=== PATIENT | male | born 2005 | race Caucasian/White ===

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

== ENCOUNTER → 2024-04-27 | Outpatient (CLI) | payer BC, SELFPAY ==
--- NOTE | 2024-04-27 16:00 | RAD_ITS ---
STUDY: X-RAY - RIGHT WRIST REASON FOR EXAM: Male, 18 years old. persistent right wrist pain TECHNIQUE: 3 view(s) of the wrist were obtained. COMPARISON: None. FINDINGS: Normal visualized distal radius and ulna. Normal radiocarpal articulation. Normal distal radioulnar articulation. Normal carpal bones. Normal carpal articulations. Normal carpometacarpal articulation of the thumb. Normal second through fifth carpometacarpal articulations. Normal visualized metacarpal bones. The soft tissue structures are unremarkable. RAD/Wrist min 3 Views IMPRESSION: Normal x-ray examination of the wrist. Electronically Signed: Nehemias Fallon MD at 19:16 EDT ,
== END | disposition home or self-care (01) ==
PROVIDERS: PCP Family Medicine; Referring Provider Family Medicine; Visit Provider Family Medicine
DX: M25.531 Pain in right wrist (principal)
CPT/HCPCS: 73110

== ENCOUNTER 2024-10-26 16:30 | Outpatient (RCR) | payer BC, SELFPAY ==
--- NOTE | 2024-09-25 19:03 | HP.PTEVAL ---
Patient's Visit Information Visit Information Visit Information: PAUL PAREKH is a 18 year old M referred to Physical Therapy by Dr. Miah Velasquez DO with a diagnosis of BACK PAIN. Date of Evaluation: 09/25/24 Physical Therapist: Des Eaton, PT, Cert MDT, OCS Visit Plan Frequency: 2x /Week Duration: 4 Weeks Plan: PT INTERVENTIONS ROBB EX'S ,PATIENT EDUCATION LUMBAR ROLL EDUCATION , MODALITIES TO REDUCE PAIN RIGHT LUMBAR PROGRESS TO DLS ,AND POSTURAL EX'S Subjective Subjective: This 18 y/o male presents to physical therapy with back pain. Patient injury to lumbar ~ 1 month ago but symptoms have been intermittent ~ 2 years. Patient symptoms worse right lumbar to thigh to calf. Seen DR recommended PT tried anti-inflammatory . No imaging. Lat week pain worse right lumbar better thus week. Also symptom better in leg but worse with sitting. Aggravating factors sitting ,driving mild lifting. Alleviating factors standing, walking . Coughing/sneezing -. Bowel/bladder -. Patient has no prior PT . Patient seen chiropractor ~ 1 year helped. Patient condition affects QOL and function job demands. Patient goals to have no pain. SOCIAL: single VOCATION: [employer] Pain Right Back: Pain Intensity (Out of 10): 2 Pain Intensity Range: 10 Right Lower Extremity: Pain Intensity (Out of 10): 0 Pain Intensity Range: 10 Objective Objective: POSTURE: mild forward posture , reduce lordosis GAIT: reciprocal pattern PALPATION: tender right lumbar transverse NEURO: denies paresthesia/tingling ,occasionally right ight ,reflexes L3-4 ,L4-5 ,L5-S1 2/3 LUMBAR ROM: flexion min loss ,extension min loss ,side glides min loss FLEXABILITY : min tight MMT: quads/hams 4/5 ,hip 4/5 ,ankle 5/5 Special Tests L/S Slump test left side: Negative L/S Slump test right side: Positive L/S Left Straight Leg Raise: Positive L/S Right Straight Leg Raise: Negative Lumbar Standing: Flexion - Mechanical Response: No effect Lumbar Standing: Flexion - Symptoms During Testing: Increases Lumbar Standing: Flexion - Symptoms After Testing: No worse Lumbar Standing: Extension - Mechanical Response: No effect Lumbar Standing: Extension - Symptoms During Testing: Increases Lumbar Standing: Extension - Symptoms After Testing: No worse Lumbar Standing: Right Side Glides - Mechanical Response: No effect Lumbar Standing: Right Side [place] - Symptoms During Testing: Increases Lumbar Standing: Right Side [place] - Symptoms After Testing: No worse Lumbar Standing: Left Side [place] - Mechanical Response: No effect Lumbar Standing: Left Side [place] - Symptoms During Testing: No effect Lumbar Standing: Left Side [place] - Symptoms After Testing: No effect Lumbar Lying: Flexion - Mechanical Response: No effect Lumbar Lying: Flexion - Symptoms During Testing: No effect Lumbar Lying: Flexion - Symptoms After Testing: No effect Lumbar Lying: Extension - Mechanical Response: No effect Lumbar Lying: Extension - Symptoms During Testing: Decreases Lumbar Lying: Extension - Symptoms After Testing: No better Balance/Special Test Scores Oswestry Low Back Score: 16 Goals Goal 1:: Patient to be I with HEP Goal Time Frame: 4-6 Weeks Goal 2:: Patient to demonstrate 70% improvement with less pain and improve function Goal Time Frame: 4-6 Weeks Goal 3:: Patient return to function of recovery for job demand's and good sitting posture Goal Time Frame: 4-6 Weeks Goal 4:: Patient to improve back oswestry score by 5 points to improve QOL and function Goal Time Frame: 4-6 Weeks Goal 5:: Patient to improve posture/body mechanics 90% of the time with job demands, Goal Time Frame: 4-6 Weeks Rehabilitation Potential Physical Therapy Diagnosis: This patient has possible derangement with lumbar with pain worse with positioning and motion testing . Patient symptoms worse with sitting maily better with correction posture thus benefit from skilled PT Rehabilitation Potential: Good Anticipated Interventions Patient/Client Instruction: Educate patient on: Condition and Plan of Care For the Purpose of:: To decrease pain, To improve nutrient delivery to tissue, To increase oxygenation perfusion, To improve muscle performance and motor function, To increase tolerance to activity/condition/position, To improve ability of physical actions for home/community/work/leisure, To decrease soft tissue restriction, To increase flexibility/ROM and To improve tolerance to ADL's Therapeutic Exercise to Include: Strength training, Postural training, Flexibilty training and Dynamic Lumbar Stabilization For the Purpose of:: To decrease pain, To increase ROM, To improve muscle performance and motor function, To improve ability to perform ADL's, To increase tolerance to activity/condition/position, To improve ability of physical actions for home/community/work/leisure, To improve health of tissue, To decrease soft tissue restriction, To increase flexibility/ROM, To reduce risk of recurrence and To prevent re-injury TENS: Yes IF ES: Yes Cryotherapy (ice pack, ice massage): Yes Thermo therapy (hot pack): Yes Ultrasound (thermal/non thermal): Yes For the Purpose of:: To decrease pain, To increase ROM, To improve nutrient delivery to tissue, To increase oxygenation perfusion, To improve health of tissue and To decrease soft tissue restriction Text: Thank you for the opportunity to evaluate your patient. For Medicare and Medicare HMO plans, please review the plan of care and approve it. It will need to be FAXED BACK to us at [phone] for Medicare purposes. For Medicare only, by signing this I certify the plan of care. Please let me know if there are questions or concerns regarding this plan of care. Physician Signature: Date:
--- NOTE | 2024-10-26 16:51 | HP.PTDCSUM ---
Discharge Summary D/C summary: It has been my pleasure to treat PAUL PAREKH referred by Dr. Miah Velasquez DO, with the diagnosis of BACK PAIN for a total of 7 visit(s). Discharge Date: 10/26/24 Please see the following information for a summary of their discharge status. Subjective Subjective: 2 years but 2 months a lot worse Pain is intermittent Pain Right Back: Pain Intensity (Out of 10): 0 Right Lower Extremity: Pain Intensity (Out of 10): 0 Overall Improvement % Improvement: 50 Objective Objective/Function: POSTURE: mild forward posture , reduce lordosis GAIT: reciprocal pattern PALPATION: tender right lumbar transverse NEURO: denies paresthesia/tingling ,occasionally right ight ,reflexes L3-4 ,L4-5 ,L5-S1 2/3 LUMBAR ROM: flexion WFL ,extension WFL ,side glides min loss FLEXABILITY : min tight MMT: quads/hams 4/5 ,hip 4/5 ,ankle 5/5 Goals Goal 1:: Patient to be I with HEP Goal 2:: Patient to demonstrate 70% improvement with less pain and improve function Goal Progress: Progressing Goal 3:: Patient return to function of recovery for job demand's and good sitting posture Goal Progress: Goal Met Goal 4:: Patient to improve back oswestry score by 5 points to improve QOL and function Goal Progress: Goal Met Goal 5:: Patient to improve posture/body mechanics 90% of the time with job demands, Goal Progress: Goal Met Plan Plan: D/C D/C Information Discharge Comments: HEP AND RTD AND OR CHIROPRACTOR d/c sentence: If there are questions or concerns regarding this patient's physical therapy, please feel free to call me at [phone]. Thank you for the referral of this patient. Sincerely, Des Eaton, PT, Cert MDT, OCS Balance/Gait/Functional tests Balance/Special Test Scores Oswestry Low Back Score: 6 Improvement % Improvement: 50
== END 2024-10-26 19:00 | disposition home or self-care (01) ==
LOC: PT 16:30
PROVIDERS: PCP Family Medicine; Referring Provider Family Medicine; Visit Provider Family Medicine
DX: M54.9 Dorsalgia, unspecified (principal)
CPT/HCPCS: 97014; 97110; 97162; 97530; G0283

== ENCOUNTER 2025-03-16 06:37 | Day surgery (SDC) | payer BC, SELFPAY ==
--- NOTE | 2025-03-15 16:52 | PAT.ANE_ITS ---
Pre-Assessment Diagnosis/Proposed Procedure Planned Operative Procedure(s): egd Anesthesia History Anesthesia History - ecological risk assessor: Anesthesia History - ecological risk assessor Hx Hospitalization No 03/15/25 15:58 Any Problems With Anesthesia No 03/15/25 15:58 Cholinesterase deficiency No 03/15/25 15:58 You/Your Family Experience No 03/15/25 15:58 fever (hyperthermia) with Relationship Recent Exposure to Contagious Disease Does patient have nerve No 03/15/25 15:58 stimulator Patient instructed to have device shut off --Does patient have Pacemaker or ICD? When Was Last Pacemaker Check QUESTION #4 FULL TEXT: You/Your Family Experience fever (hyperthermia) with Anesthesia Last Oral Intake Last Oral intake: Last Oral Intake NPO since Meds taken in AM with sips of water? Meds patient instructed to take am of surgery PONV PONV - ecological risk assessor: PONV - ecological risk assessor Female No 03/15/25 15:58 HX of Motion Sickness No 03/15/25 15:58 HX of N/V After Surgery No 03/15/25 15:58 Non-Smoker Yes 03/15/25 15:58 Duration of Surgery greater No 03/15/25 15:58 than 60 minutes Number of Risk Factors 1 03/15/25 15:58 PONV Score Low Risk 03/15/25 15:58 Height & Weight Height & Weight: Anesthesia: Height & Weight Height 6 ft 1 in 08/25/23 14:16 Respiratory Assessment Respiratory Assessment - ecological risk assessor: Respiratory Tract Infection Hx - ecological risk assessor Hx Respiratory Tract Infection No 03/15/25 15:58 STOP Sleep Apnea STOP Sleep Apnea - ecological risk assessor: STOP Sleep Apnea - ecological risk assessor Hx Hypertension No 03/15/25 15:58 Hx Sleep Apnea No 03/15/25 15:58 CPAP BIPAP Do you snore loudly (louder No 03/15/25 15:58 than talking or can be heard Do you often feel tired/ No 03/15/25 15:58 fatigued/ sleepy during daytime? Has anyone observed you stop No 03/15/25 15:58 breathing during sleep? STOP Results Negative 03/15/25 15:58 QUESTION #5 FULL TEXT : Do you snore loudly (louder than talking or can be heard through closed doors)? Tobacco Use History Tobacco Use History - ecological risk assessor: Tobacco Use History - ecological risk assessor Tobacco Use Smoking Status Never smoker 03/15/25 15:58 Hx Tobacco Use No 03/15/25 15:58 Years Smoking Packs Smoked per Day Smoking Cessation Date was within the last 15 years Hx Smoking Cessation Date Hx Smoking Cessation Counseling Hematologic Medial History Hematologic Hx - ecological risk assessor: Hematologic Medical Hx - clinical documentation consultant Hx of Blood Transfusion No 03/15/25 15:58 Hx of Transfusion in last 3 No 03/15/25 15:58 Months Date of Last Transfusion (if within last 3 months) Ever experience any problems No 03/15/25 15:58 with transfusion(s)? Specify any problems Hx of Preganancy in last 3 N/A 03/15/25 15:58 Months Nurse Filling Out Transfusion [email or web address] 03/15/25 15:58 & Questions: Date: 03/15/25 03/15/25 15:58 Time: 15:59 03/15/25 15:58 Patient unable to answer at this time (ie. confused, unrespo /Reproduction History /Reproductive History - ecological risk assessor: /Reproductive Hx- ecological risk assessor Hx Now No 03/15/25 15:58 Gestational Age (in weeks): EDC: Hx Hx Para Hx Section SAB No 03/15/25 15:58 [facility] Medical History (Updated 03/15/25 @ 15:58 by Mikayla Mejia) Wears contact lenses Wears glasses Non-smoker History of Holter monitoring Heartburn Asthma GERD (gastroesophageal reflux disease) Home Medications ?Medication ?Instructions ?Recorded ?Last Taken ?Type montelukast 10 mg tablet 10 mg PO DAILY 08/27/21 Unkn own History omeprazole 20 mg capsule,delayed 20 mg PO QDAY #60 cap s 01/26/25 Unknown Rx release Allergy/AdvReac Type Severity Reaction Status Date / Time Seasonal Allergies: Uncoded Allergy Intermediate Other Verified 03/15/25 15:53 Environmental Allergies: Allergy Shortness Verified 03/15/25 15:53 Uncoded of breath Family History Father Diabetes Hypertension Sleep apnea Mother Sleep apnea Depression Surgical History H/O hernia repair H/O wisdom tooth extraction History of herniorrhaphy Social History Smoking Status: Never smoker second hand exposure: Yes Audit: Pertinent Findings Pertinent Findings EKG Perinent findings: 11/04/2022. Sinus bradycardia at 59 bpm. Additional pertinent findings: 11/13/2022. Base rhythm was normal sinus rhythm with periods of sinus arrhythmia. 1 isolated PVC. Rare PACs. No runs. No atrial fibrillation noted. Patient kept a 48-hour diary and noted heart feeling weird, shortness of breath and heart flutters which correlated with normal sinus rhythm and sinus tachycardia. Recommendation Anesthesia Recommendation Anesthesia recommendation: OPTIMIZED for anesthesia
[2025-03-16] VITALS (7 sets, daily range): BP systolic 121–142; BP diastolic 78–95; PULSE 63–76; RESP 16–20; TEMP 36.1–36.4; O2SAT 97–100; BMI 27.3
--- OUTSIDE RECORDS SUMMARY | 2025-03-16 06:40 | XMS RPT_ITS | CCD ---
Author Organization [facility] CliniSyil Care Team Providers Care Fare Enforcement Officer Name Role Phone Dr. Faheem Sharpe Referring Provider Dr. Terrell Segura Attending Provider Dr. Miah Velasquez Primary Care Provider Dr. Faheem Sharpe Primary Care Provider Dr. Terrell Segura Referring Provider Dr. Terrell Segura Other Provider Caitlin HOMOEOPATH, HOMOEOPATH-C Linda Attending Provider [phone] Caitlin HOMOEOPATH, HOMOEOPATH-C Linda Referring Provider [phone] Dr. Miah Velasquez Primary Care Provider Dr. Miah Velasquez Referring Provider ROBBY Miller Attending Provider Dr. Miah Velasquez DO Primary Care Provider Dr. Miah Velasquez DO Referring Provider Fallon Reich Attending Provider Dr. Miah Velasquez DO Attending Provider Dr. Miah Velasquez DO Primary Care Provider Dr. Miah Velasquez DO Referring Provider Fallon Reich Attending Provider Fallon Reynolds Attending Unavailable Miah Velasquez Referring Unavailable Miah Velasquez Primary Care Unavailable Friend, Marcellus Attending Unavailable Miah Velasquez Referring Unavailable Miah Velasquez Primary Care Unavailable Miah Velasquez Primary Care Unavailable Fallon Reynolds Attending Unavailable Maih Velasquez Referring Unavailable Miah Velasquez Primary Care Unavailable Fallon Reynolds Attending Unavailable Miah Velasquez Referring Unavailable Miah Velasquez Attending Unavailable Miah Velasquez Referring Unavailable Miah Velasquez Primary Care Unavailable Miah Velasquez Primary Care Unavailable Miah Velasquez Attending Unavailable Miah Velasquez Referring Unavailable Allergies Allergy Classification Reported Allergen(s) Allergy Type Date of Onset Reaction(s) Facility (1 source) Seasonal allergy Allergy to substance 3 Itching [facility] (4 sources) Environmental Allergies: Uncoded; Translations: [Environmental Allergies: Uncoded] Allergy to substance 3 Shortness of breath [facility] Comment on above: Hay (3 sources) Seasonal Allergies: Uncoded; Translations: [Seasonal Allergies: Uncoded] Allergy to substance 5 Other [facility] Comment on above: runny nose, headache Medications Current Medications Medication Drug Class(es) Dates Sig (Normalized) Sig (Original) Fluticasone Propionate (Armonair Digihaler) 232 mcg/actuation aero powdr breath act w/sensor (4 sources) Start: 10-24-2021 Fluticasone Propionate (Armonair Digihaler) 232 mcg/actuation aero powdr breath act w/sensor Active 1 INH INHALATION TWICE A DAY October 24, 2021 1:38pm Start: 10-24-2021 End: 12-24-2021 Fluticasone Propionate (Armo ramos Digihaler) 232 mcg/actuation aero powdr breath act w/sensor Discontinued 1 NMA INHALATION TWICE A DAY 07 24October 24, 2021 12:00am December 24, 2021 1:14pm Asthma Unspecified asthma, uncomplicated Start: 10-24-2021 End: 12-24-2021 Fluticasone Propionate (Armo ramos Digihaler) 232 mcg/actuation aero powdr breath act w/sensor Discontinued 1 NMA INHALATION TWICE A DAY October 24, 2021 12:00am December 24, 2021 1:14pm Start: 10-24-2021 End: 12-24-2021 Fluticasone Propionate (Armo ramos Digihaler) 232 mcg/actuation aero powdr breath act w/sensor Discontinued 1 INH INHALATION TWICE A DAY 1 October 24, 2021 12:00am December 24, 2021 1:14pm montelukast 10 mg oral tablet (4 sources) Leukotriene Receptor Antagonist Start: 08-27-2021 take 1 tablet by mouth once daily Montelukast 10 mg tablet Active 10 mg PO DAILY August 27, 2021 1:00am omeprazole 20 mg delayed release oral capsule (9 sources) Proton Pump Inhibitor Start: 09-01-2024 End: 01-26-2025 take 1 capsule by mouth once daily Omeprazole 20 mg capsule,delayed release(DR/EC) Active 20 mg PO daily 60 4 January 26, 2025 1:55pm Start: 08-27-2021 End: 09-01-2024 take 1 capsule by mouth once daily Omeprazole 40 mg capsule,delayed release(DR/EC) Discontinued 40 mg PO daily 90 2 June 02, 2024 1:00am September 01, 2024 3:18pm Completed/Discontinued Medications Medication Drug Class(es) Dates Sig (Normalized) Sig (Original) [id number] 200 actuat albuterol 0.09 mg/actuat metered dose inhaler (6 sources) beta2-Adrenergic Agonist Start: 05-13-2021 Albuterol Sulfate (Ventolin Hfa) 90 mcg/actuation HFA aerosol inhaler Active 1 INH INHALATION ONCE May 13, 2021 1:36pm Start: 05-13-2021 End: 06-02-2024 Albuterol Sulfate (Ventolin Hfa) 90 mcg/actuation HFA aerosol inhaler Discontinued 1 NMA INHALATION ONCE 8.5 1 August 25, 2023 4:01pm June 02, 2024 3:29pm Start: 05-13-2021 Albuterol Sulf ate (Ventolin Hfa) 90 mcg/actuation HFA aerosol inhaler Active 1 INH INHALATION ONCE May 13, 2021 12:00am azithromycin 250 mg oral tablet (4 sources) Macrolide Antimicrobial Start: 05-13-2021 End: 08-27-2021 take 2-5 tablets by mouth once daily Azithromycin 250 mg tablet Discontinued 0 PO .COMPLEX 6 0 May 13, 2021 12:00am August 27, 2021 2:06pm take 500 mg today (day 1), then 250 mg for 4 days (days 2-5) PO Budesonide-Formoter ol (6 sources) Corticosteroid, beta2-Adrenergic Agonist Start: 08-25-2023 End: 06-02-2024 Budesonide-Formote rol (Symbicort) 160-4.5 mcg/actuation HFA aerosol inhaler Discontinued 2 NMA INHALATION TWICE A DAY 1 6 August 25, 2023 4:01pm June 02, 2024 3:29pm administer with spacer, rinse mouth after each use Start: 08-25-2023 End: 06-02-2024 Budesonide-Formoterol (Symbi angus) 160-4.5 mcg/actuation HFA aerosol inhaler Discontinued 2 NMA INHALATION TWICE A DAY 1 August 25, 2023 4:01pm June 02, 2024 3:29pm administer with spacer, rinse mouth after each use Start: 06-30-2023 End: 08-25-2023 Budesonide-Formoterol (Symbi angus) 160-4.5 mcg/actuation HFA aerosol inhaler Discontinued 2 NMA INHALATION TWICE A DAY 1 3 June 30, 2023 8:56am August 25, 2023 4:02pm administer with spacer, rinse mouth after each use Start: 06-30-2023 End: 08-25-2023 Budesonide-Formoterol (Symbi angus) 160-4.5 mcg/actuation HFA aerosol inhaler Discontinued 2 NMA INHALATION TWICE A DAY 1 June 30, 2023 8:56am August 25, 2023 4:02pm administer with spacer, rinse mouth after each use Start: 02-26-2023 End: 06-30-2023 Budesonide-Formoterol (Symbi angus) 160-4.5 mcg/actuation HFA aerosol inhaler Discontinued 2 NMA INHALATION TWICE A DAY 1 3 February 26, 2023 12:00am June 30, 2023 8:57am administer with spacer, rinse mouth after each use Start: 02-26-2023 End: 06-30-2023 Budesonide-Formoterol (Symbi angus) 160-4.5 mcg/actuation HFA aerosol inhaler Discontinued 2 NMA INHALATION TWICE A DAY 1 February 26, 2023 12:00am June 30, 2023 8:57am administer with spacer, rinse mouth after each use dexamethasone 6 mg oral tablet (3 sources) Corticosteroid Start: 02-28-2022 End: 10-07-2022 take 1 tablet by mouth once daily Dexamethasone 6 mg tablet Discontinued 6 mg PO DAILY 5 0 February 28, 2022 12:00am October 07, 2022 10:43am famotidine 40 mg oral tablet (7 sources) Histamine-2 Receptor Antagonist Start: 12-14-2021 End: 09-01-2024 take 1 tablet by mouth once daily Famotidine 40 mg Tablet Discontinued 40 mg PO DAILY December 14, 2021 12:00am September 01, 2024 3:15pm Start: 08-27-2021 End: 08-27-2021 take 1 tablet by mouth once daily Famotidine 40 mg tablet Discontinued 40 mg PO DAILY August 27, 2021 1:00am August 27, 2021 2:13pm Fluticasone Furoate (10 sources) Corticosteroid Start: 08-03-2022 End: 02-25-2023 take 200 ug by inhalation once daily Fluticasone Furoate (Arnuity Ellipta) 200 mcg/actuation blister with device Discontinued 1 NMA INHALATION daily 3 August 03, 2022 8:55am February 25, 2023 2:05pm administer at approximately the same time(s) each day Start: 08-03-2022 End: 02-25-2023 take 200 ug by inhalation once daily Fluticasone Furoate (Arnuity Ellipta) 200 mcg/actuation blister with device Discontinued 1 NMA INHALATION daily August 03, 2022 8:55am February 25, 2023 2:05pm administer at approximately the same time(s) each day Start: 08-03-2022 take 200 ug by inhal ation once daily Fluticasone Furoate (Arnuity Ellipta) 200 mcg/actuation blister with device Active 1 INH INHALATION daily August 03, 2022 8:55am administer at approximately the same time(s) each day Start: 05-29-2022 End: 08-03-2022 take 200 ug by inhalation once daily Fluticasone Furoate (Arnuity Ellipta) 200 mcg/actuation blister with device Discontinued 1 NMA INHALATION daily 3 May 29, 2022 3:35pm Yajaira 16th, 2023 8:55am administer at approximately the same time(s) each day Start: 05-29-2022 End: 08-03-2022 take 200 ug by inhalation once daily Fluticasone Furoate (Arnuity Ellipta) 200 mcg/actuation blister with device Discontinued 1 NMA INHALATION daily May 29, 2022 3:35pm August 03, 2022 8:55am administer at approximately the same time(s) each day Start: 05-29-2022 End: 08-03-2022 take 200 ug by inhalation once daily Fluticasone Furoate (Arnuity Ellipta) 200 mcg/actuation blister with device Discontinued 1 INH INHALATION daily May 29, 2022 3:35pm August 03, 2022 8:55am administer at approximately the same time(s) each day Start: 12-24-2021 End: 05-29-2022 take 200 ug by inhalation once daily Fluticasone Furoate (Arnuity Ellipta) 200 mcg/actuation blister with device Discontinued 1 NMA INHALATION daily 15 01December 24, 2021 12:00am May 29, 2022 3:35pm administer at approximately the same time(s) each day Start: 12-24-2021 End: 05-29-2022 take 200 ug by inhalation once daily Fluticasone Furoate (Arnuity Ellipta) 200 mcg/actuation blister with device Discontinued 1 NMA INHALATION daily December 24, 2021 12:00am May 29, 2022 3:35pm administer at approximately the same time(s) each day Start: 12-24-2021 End: 05-29-2022 take 200 ug by inhalation once daily Fluticasone Furoate (Arnuity Ellipta) 200 mcg/actuation blister with device Discontinued 1 INH INHALATION daily December 24, 2021 12:00am May 29, 2022 3:35pm administer at approximately the same time(s) each day Start: 12-14-2021 take 1 puff(s) by in halation twice daily Fluticasone Propionate Active 1 PUFF INHALATION TWICE A DAY December 14, 2021 12:00am 30 actuat fluticasone furoate 0.2 mg/actuat / vilanterol 0.025 mg/actuat dry powder inhaler (2 sources) Corticosteroid, beta2-Adrenergic Agonist Start: 02-25-2023 End: 02-26-2023 Fluticasone Furoate-Vilanterol (Breo Ellipta) 200-25 mcg/dose blister with device Discontinued 1 NMA INHALATION daily 60 6 February 25, 2023 12:00am February 26, 2023 12:16pm after inhalation, rinse mouth with water and spit out; do not swallow Fluticasone Propionate 220 mcg/actuation Hfa Aerosol Inhaler (2 sources) Start: 12-14-2021 End: 02-25-2023 Fluticasone Propionate 220 mcg/actuation Hfa Aerosol Inhaler Discontinued 1 NMA INHALATION TWICE A DAY December 14, 2021 12:00am February 25, 2023 1:47pm lansoprazole 30 mg delayed release oral capsule (2 sources) Proton Pump Inhibitor Start: 05-10-2024 End: 06-02-2024 take 1 capsule by mouth once daily Lansoprazole 30 mg capsule,delayed release(DR/EC) Discontinued 30 mg PO daily May 10, 2024 12:00am June 02, 2024 3:29pm methylPREDNISolone 4 mg oral tablet (4 sources) Corticosteroid Start: 05-13-2021 End: 05-18-2021 take 1 tablet by mouth once Methylprednisolone (Medrol (Jan)) 4 mg tablets,dose pack Discontinued 4 mg PO per package directions 21 5 0 May 13, 2021 12:00am May 17, 2021 12:00am May 18, 2021 12:01am Problems Active Problems Problem Classification Problem Date Documented Da te Episodic/Chronic Acute bronchitis (4 sources) Acute bronchitis; Translations: [Acute bronchitis, unspecified] 05-13-2021 Episodic Asthma (6 sources) Asthma; Translations: [Unspecified asthma, uncomplicated] Chronic Cardiac dysrhythmias (3 sources) Palpitations; Translations: [Palpitations] 11-12-2022 Episodic Esophageal disorders (2 sources) Gastroesophageal reflux disease; Translations: [Gastro-esophageal reflux disease without esophagitis] Onset: 01-26-2025 Chronic Immunizations and screening for infectious disease (4 sources) Contact with and (suspected) exposure to other viral communicable diseases; Translations: [Contact with or suspected exposure to other viral communicable disease] 10-07-2022 Episodic Open wounds of extremities (6 sources) Laceration of intrinsic muscle of thumb; Translations: [Laceration of intrinsic muscle, fascia and tendon of unspecified thumb at wrist and hand level, initial encounter] 11-10-2022 Episodic Other gastrointestinal disorders (3 sources) Heartburn; Translations: [Heartburn] 09-01-2024 Episodic Other upper respiratory disease (3 sources) Feeling of lump in throat; Translations: [Globus sensation] 06-02-2024 Episodic Other upper respiratory disease (2 sources) Nasal congestion; Translations: [Nasal congestion] 02-26-2023 Episodic Other upper respiratory infections (4 sources) Acute pharyngitis; Translations: [Acute pharyngitis, unspecified] 10-07-2022 Episodic Viral infection (3 sources) Disease caused by 2019-nCoV; Translations: [COVID-19] 02-28-2022 Episodic Past or Other Problems Problem Classification Problem Date Documented Da te Episodic/Chronic Other non-traumatic joint disorders (1 source) Pain in right wrist; Translations: [Pain in right wrist] Onset: 05-18-2024 Episodic Results Test Name Value Interpretation Reference Range Facility MR/PAT.ANEon 03-15-2025 /PAT.[facility] Medical Records Department [address] [place] [address] PAT - Anesthesia 03/15/25 1652 MR#: [id number] Acct: [id number] Name: KENDALL PAREKH Rep #: [id number] : 2005 19 From: Abhishek Bravo MD PCP: Dr. Miah Velasquez, DO Status:PRE [facility] Y Race: C Location: EN Pre-Assessment Diagnosis/Proposed Procedure Planned Operative Procedure(s): egd Anesthesia History Anesthesia History - hotel associate: Anesthesia History - hotel associate Hx Hospitalization No 03/15/25 15:58 Any Problems With Anesthesia No 03/15/25 15:58 Cholinesterase deficiency No 03/15/25 15:58 You/Your Family Experience No 03/15/25 15:58 fever (hyperthermia) with Relationship Recent Exposure to Contagious Disease Does patient have nerve No 03/15/25 15:58 stimulator Patient instructed to have device shut off --Does patient have Pacemaker or ICD? When Was Last Pacemaker Check QUESTION #4 FULL TEXT: You/Your Family Experience fever (hyperthermia) with Anesthesia Last Oral Intake Last Oral intake: Last Oral Intake NPO since Meds taken in AM with sips of water? Meds patient instructed to take am of surgery PONV PONV - hotel associate: PONV - hotel associate Female No 03/15/25 15:58 HX of Motion Sickness No 03/15/25 15:58 HX of N/V After Surgery No 03/15/25 15:58 Non-Smoker Yes 03/15/25 15:58 Duration of Surgery greater No 03/15/25 15:58 than 60 minutes Number of Risk Factors 1 03/15/25 15:58 PONV Score Low Risk 03/15/25 15:58 Height Weight Height Weight: Anesthesia: Height Weight Height 6 ft 1 in 08/25/23 14:16 Respiratory Assessment Respiratory Assessment - hotel associate: Respiratory Tract Infection Hx - hotel associate Hx Respiratory Tract Infection No 03/15/25 15:58 STOP Sleep Apnea STOP Sleep Apnea - hotel associate: STOP Sleep Apnea - hotel associate Hx Hypertension No 03/15/25 15:58 Hx Sleep Apnea No 03/15/25 15:58 CPAP BIPAP Do you snore loudly (louder No 03/15/25 15:58 than talking or can be heard Do you often feel tired/ No 03/15/25 15:58 fatigued/ sleepy during daytime? Has anyone observed you stop No 03/15/25 15:58 breathing during sleep? STOP Results Negative 03/15/25 15:58 QUESTION #5 FULL TEXT : Do you snore loudly (louder than talking or can be heard through closed doors)? Tobacco Use History Tobacco Use History - hotel associate: Tobacco Use History - hotel associate Tobacco Use Smoking Status Never smoker 03/15/25 15:58 Hx Tobacco Use No 03/15/25 15:58 Years Smoking Packs Smoked per Day Smoking Cessation Date was within the last 15 years Hx Smoking Cessation Date Hx Smoking Cessation Counseling Hematologic Medial History Hematologic Hx - hotel associate: Hematologic Medical Hx - dental detail representative Hx of Blood Transfusion No 03/15/25 15:58 Hx of Transfusion in last 3 No 03/15/25 15:58 Months Date of Last Transfusion (if within last 3 months) Ever experience any problems No 03/15/25 15:58 with transfusion(s)? Specify any problems Hx of Preganancy in last 3 N/A 08/28/25 15:58 Months Nurse Filling Out Transfusion GOYO 03/15/25 15:58 Questions: Date: 03/15/25 03/15/25 15:58 Time: 15:59 03/15/25 15:58 Patient unable to answer at this time (ie. confused, unrespo /Reproduction History /Reproductive History - hotel associate: /Reproductive Hx- hotel associate Hx Now No 03/15/25 15:58 Gestational Age (in weeks): EDC: Hx Hx Para Hx Section SAB No 03/15/25 15:58 [facility] Medical History (Updated 03/15/25 @ 15:58 by Mikayla Mejia) Wears contact lenses Wears glasses Non-smoker History of Holter monitoring Heartburn Asthma GERD (gastroesophageal reflux disease) Home Medications ???Medication ???Instructions ???Recorded ???Last Taken ???Type montelukast 10 mg tablet 10 mg PO DAILY 08/27/21 Unknown Hi story omeprazole 20 mg capsule,delayed 20 mg PO QDAY #60 caps 01/26/25 Un known Rx release Allergy/AdvReac Type Severity Reaction Status Date / Time Seasonal Allergies: Uncoded Allergy Intermediate Other Verified 03/15/25 15:53 Environmental Allergies: Allergy Shortness Verified 03/15/25 15:53 Uncoded of breath Family History Father Diabetes Hypertension Sleep apnea Mother Sleep apnea Depression Surgical History H/O hernia repair H/O wisdom tooth extraction History of herniorrhaphy Social History ( (more content not included)... Normal [facility] Gastroenterology Visit Repor ton 01-26-2025 Gastroenterology Visit Report [facility] Gastroenterology [address] [place] [address] OFFICE VISIT Date of Service: 01/26/25 MR#: [id number] Acct: [id number] Name: KENDALL PAREKH Rep #: [id number] : 2005 Provider: ROBBY Mcneill Age/Sex: 19/M Location: [facility] Status: Signed Intake Vital Signs 02/07/24 14:16 Height 6 ft 1 in Intake Visit Reasons: Acid reflux Chief Complaint: heartburn Allergies Seasonal Allergies: Uncoded Allergy (Intermediate, Verified 01/26/25 13:39) Other Environmental Allergies: Uncoded Allergy (Verified 01/26/25 13:39) Shortness of breath Medications ???Medication ???Instructions ???Recorded ???Confirmed ???Type montelukast 10 mg tablet 10 mg PO DAILY 08/27/21 01/26/25 H istory omeprazole 20 mg capsule,delayed 20 mg PO QDAY #60 caps 01/26/25 Rx release Nurse's Note: Patient is here for a follow up stated he went off of the omeprazole and he started having symptoms coming back it is affecting his talking like he has something in his throat and he can't get it to go away and he is having a lot of heartburn. PFS Medical History Heartburn Asthma GERD (gastroesophageal reflux disease) Surgical History H/O hernia repair H/O wisdom tooth extraction History of herniorrhaphy Family History Father Diabetes Hypertension Sleep apnea Mother Sleep apnea Depression Social History Smoking Status: Never smoker second hand exposure: Yes HPI HPI Chief Complaint: heartburn Details: KENDALL PAREKH, is a 19 M who presents to the office today for f/u. BGI established 06.02.24 with globus sensation for the past 3 years. Feels this intermittently after eating solids and liquids. Pt also with heartburn. PMHx of asthma and seasonal allergies. *Start omeprazole 40 mg daily, continue famotidine, consider EGD OV 2 Pt has been doing well. He is no longer having any heartburn. The globus sensation has also gone away. He feels the omeprazole 40 mg daily has been helpful. Consider EGD to rule out EOE. OV 01.26.25 Pt discontinued omeprazole following his last appointment. Since then he has had return of symptoms including heartburn, globus sensation and loss of his voice. He finds himself clearing his through often but with no relief. Heartburn is daily and worse when drinking water. Liquids are more aggravating to his symptoms than solids. He did restart famotidine which helped some. He ran out of refills for omeprazole so he did not restart this. ROS Const Constitutional: No anorexia, fatigue, fever(s), weight change or sleep problems Eyes Eyes: No change in vision ENT ENT: Positive for difficulty swallowing; No abnormal hearing, tongue swelling or throat swelling Resp Respiratory: No cough or shortness of breath Cardio Cardiology: No chest pain at rest, chest pain with exertion, shortness of breath or dyspnea on exertion Gastro GI: Positive for difficulty swallowing Genitourinary Male: No difficulty urinating or burning urination Musc Musculoskeletal: No joint pain, joint swelling, muscle weakness or decreased muscle mass Skin Skin: No hair loss in leg, yellowing of the eye, itchy eyes, rash, skin ulcer or skin swelling Neuro Neurology: No abnormal hearing, abnormal movements, confusion, unsteady gait/balance or memory loss Psych Psychiatric: No anxiety, No confusion and No memory loss Endo Endocrine: No fatigue or weight change Aller/Imm Allergy/Immunologic: No itchy eyes, throat swelling or tongue swelling Rogers/Lymp Hematologic/Lymphatic: No easy bleeding, easy bruising or enlarged lymph nodes Exam Const General: cooperative and healthy appearing HENMT Head: normal to inspection Mouth: oral mucosae normal Eyes General: appearance normal, both eyes and all related structures Neck Neck: normal visual inspection Chest Chest palpation inspection: normal inspection of the chest Resp Effort Inspection: normal respiratory effort Cardio Rate: regular rate Rhythm: regular rhythm GI Inspection: normal to inspection Auscultation: normal bowel sounds Palpation: soft and nontender Assessment and Plan Assessment and Plan (1) Gastroesophageal reflux disease: (2) Globus sensation: Status: Acute Plan: Kendall is a 19 yo male pt here today for f/u regarding his ongoing issues with globus sensation, heartburn and hoarseness. Pt initially treated with omeprazole 40 mg daily and famotidine PRN for about 6 months. During this time his symptoms improved however he ran out of refills and did not continue. Since discontinuation he has had return of (more content not included)... Normal [facility] PT D/C Summary (1)on 025 PT D/C Summary (1) [facility] Physical Therapy [facility] [address] [place] [address]. [address] [place] [address] / REHABILITATION SERVICES DISCHARGE SUMMARY MR#: [id number] Acct: [id number] Name: KENDALL PAREKH Rep #: [id number] : 2005 18 From: [place] PT, Cert. MD Doug[place], OCS Referring Dr.: Dr. Miah Velasquez DO Status: RE G RCR Insurance: [employer] S[employer]URANCE Discharge Summary D/C summary: It has been my pleasure to treat KENDALL PAREKH referred by Dr. Miah Velasquez DO, with the diagnosis of BACK PAIN for a total of 7 visit(s). Discharge Date: 10/26/24 Please see the following information for a summary of their discharge status. Subjective Subjective: 2 years but 2 months a lot worse Pain is intermittent Pain Right Back: Pain Intensity (Out of 10): 0 Right Lower Extremity: Pain Intensity (Out of 10): 0 Overall Improvement % Improvement: 50 Objective Objective/Function: POSTURE: mild forward posture , reduce lordosis GAIT: reciprocal pattern PALPATION: tender right lumbar transverse NEURO: denies paresthesia/tingling ,occasionally right ight ,reflexes L3-4 ,L4-5 ,L5-S1 2/3 LUMBAR ROM: flexion WFL ,extension WFL ,side glides min loss FLEXABILITY : min tight MMT: quads/hams 4/5 ,hip 4/5 ,ankle 5/5 Goals Goal 1:: Patient to be I with HEP Goal 2:: Patient to demonstrate 70% improvement with less pain and improve function Goal Progress: Progressing Goal 3:: Patient return to function of recovery for job demand's and good sitting posture Goal Progress: Goal Met Goal 4:: Patient to improve back oswestry score by 5 points to improve QOL and function Goal Progress: Goal Met Goal 5:: Patient to improve posture/body mechanics 90% of the time with job demands, Goal Progress: Goal Met Plan Plan: D/C D/C Information Discharge Comments: HEP AND RTD AND OR CHIROPRACTOR d/c sentence: If there are questions or concerns regarding this patient's physical therapy, please feel free to call me at [phone]. Thank you for the referral of this patient. Sincerely, [place] PT, Cert MDT, OCS Balance/Gait/Functiona l tests Balance/Special Test Scores Oswestry Low Back Score: 6 Improvement % Improvement: 50 10/27/24 1227 CC: Dr. Miah Velasquez DO JLA Signed Normal [facility] Inital Evaluation (1) - PTon 09-25-2024 Inital Evaluation (1) - PT [facility] Physical Therapy [facility] [address] [place] [address] / REHABILITATION SERVICES INITIAL EVALUATION MR#: [id number] Acct: [id number] Name: KENDALL PAREKH Rep #: [id number] : 2005 18 From: Zoran Rawls PT. MD [place], OCS Referring Dr.: Dr. Miah Velasquez DO Status: RE G RCR Insurance: [employer] SELF PAY INSURANCE Patient's Visit Information Visit Information Visit Information: KENDALL PAREKH is a 18 year old M referred to Physical Therapy by Dr. Miah Velasquez DO with a diagnosis of BACK PAIN. Date of Evaluation: 09/25/24 Physical Therapist: Des Eaton PT, Cert T, OCS Visit Plan Frequency: 2x /Week Duration: 4 Weeks Plan: PT INTERVENTIONS ROBB EX'S ,PATIENT EDUCATION LUMBAR ROLL EDUCATION , MODALITIES TO REDUCE PAIN RIGHT LUMBAR PROGRESS TO DLS ,AND POSTURAL EX'S Subjective Subjective: This 18 y/o male presents to physical therapy with back pain. Patient injury to lumbar 1 month ago but symptoms have been intermittent 2 years. Patient symptoms worse right lumbar to thigh to calf. Seen DR daron PT tried anti-inflammatory . No imaging. Lat week pain worse right lumbar better thus week. Also symptom better in leg but worse with sitting. Aggravating factors sitting ,driving mild lifting. Alleviating factors standing, walking . Coughing/sneezing -. Bowel/bladder -. Patient has no prior PT . Patient seen chiropractor 1 year helped. Patient condition affects QOL and function job demands. Patient goals to have no pain. 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 Right Back: Pain Intensity (Out of 10): 2 Pain Intensity Range: 10 Right Lower Extremity: Pain Intensity (Out of 10): 0 Pain Intensity Range: 10 Objective Objective: POSTURE: mild forward posture , reduce lordosis GAIT: reciprocal pattern PALPATION: tender right lumbar transverse NEURO: denies paresthesia/tingling ,occasionally right ight ,reflexes L3-4 ,L4-5 ,L5-S1 2/3 LUMBAR ROM: flexion min loss ,extension min loss ,side glides min loss FLEXABILITY : min tight MMT: quads/hams 4/5 ,hip 4/5 ,ankle 5/5 Special Tests L/S Slump test left side: Negative L/S Slump test right side: Positive L/S Left Straight Leg Raise: Positive L/S Right Straight Leg Raise: Negative Lumbar Standing: Flexion - Mechanical Response: No effect Lumbar Standing: Flexion - Symptoms During Testing: Increases Lumbar Standing: Flexion - Symptoms After Testing: No worse Lumbar Standing: Extension - Mechanical Response: No effect Lumbar Standing: Extension - Symptoms During Testing: Increases Lumbar Standing: Extension - Symptoms After Testing: No worse Lumbar Standing: Right Side Glides - Mechanical Response: No effect Lumbar Standing: Right Side Marshall - Symptoms During Testing: Increases Lumbar Standing: Right Side Marshall - Symptoms After Testing: No worse Lumbar Standing: Left Side Marshall - Mechanical Response: No effect Lumbar Standing: Left Side Marshall - Symptoms During Testing: No effect Lumbar Standing: Left Side Marshall - Symptoms After Testing: No effect Lumbar Lying: Flexion - Mechanical Response: No effect Lumbar Lying: Flexion - Symptoms During Testing: No effect Lumbar Lying: Flexion - Symptoms After Testing: No effect Lumbar Lying: Extension - Mechanical Response: No effect Lumbar Lying: Extension - Symptoms During Testing: Decreases Lumbar Lying: Extension - Symptoms After Testing: No better Balance/Special Test Scores Oswestry Low Back Score: 16 Goals Goal 1:: Patient to be I with HEP Goal Time Frame: 4-6 Weeks Goal 2:: Patient to demonstrate 70% improvement with less pain and improve function Goal Time Frame: 4-6 Weeks Goal 3:: Patient return to function of recovery for job demand's and good sitting posture Goal Time Frame: 4-6 Weeks Goal 4:: Patient to improve back oswestry score by 5 points to improve QOL and function Goal Time Frame: 4-6 Weeks Goal 5:: Patient to improve posture/body mechanics 90% of the time with job demands, Goal Time Frame: 4-6 Weeks Rehabilitation Potential Physical Therapy Diagnosis: This patient has possible derangement with lumbar with pain worse with positioning and motion testing . Patient symptoms worse with sitting maily better with correction posture thus benefit from skilled PT Rehabilitation Potential: Good Anticipated Interventions Patient/Client Instruction: Educate patient on: Condition and Plan of Care For the Purpose of:: To decrease pain, To improve nutrient delivery to tissue, To increase oxygenation perfusion, To improve muscle performance and motor function, To increase tolerance to activity/condition/pos ition, To improve ability of physical actions for home/community/work/le isure, To decrease soft tissue restriction, To increase flexibility/ROM and To improve tolerance to ADL's Therapeutic Exerc (more content not included)... Normal [facility] Gastroenterology Visit Repor ton 09-01-2024 Gastroenterology Visit Report [facility] Gastroenterology [address] [place] [address] OFFICE VISIT Date of Service: 09/01/24 MR#: [id number] Acct: [id number] Name: KENDALL PAREKH ALEXIS Rep #: [id number] : 2005 Provider: ROBBY Mcneill Age/Sex: 18/M Location: [facility] Status: Signed Intake Vital Signs 08/25/23 14:16 Height 6 ft 1 in Intake Visit Reasons: 3 M FU Chief Complaint: heartburn Allergies Seasonal Allergies: Uncoded Allergy (Intermediate, Verified 09/01/24 14:06) Other Environmental Allergies: Uncoded Allergy (Verified 09/01/24 14:06) Shortness of breath Medications ???Medication ???Instructions ???Recorded ???Confirmed ???Type montelukast 10 mg tablet 10 mg PO DAILY 08/27/21 09/01/24 H istory omeprazole 20 mg capsule,delayed 20 mg PO QDAY #60 caps 09/01/24 Rx release [facility] Medical History (Updated 09/01/24 @ 14:27 by ROBBY Mcneill) Heartburn Asthma GERD (gastroesophageal reflux disease) Surgical History H/O hernia repair H/O wisdom tooth extraction History of herniorrhaphy Family History Father Diabetes Hypertension Sleep apnea Mother Sleep apnea Depression Social History Smoking Status: Never smoker second hand exposure: Yes HPI HPI Chief Complaint: heartburn Details: KENDALL PAREKH, is a 18 M who presents to the office today for f/u. [facility] established 06.02.24 with globus sensation for the past 3 years. Feels this intermittently after eating solids and liquids. Pt also with heartburn. PMHx of asthma and seasonal allergies. *Start omeprazole 40 mg daily, continue famotidine, consider EGD OV 09.01.24 Pt has been doing well. He is no longer having any heartburn. The globus sensation has also gone away. He feels the omeprazole 40 mg daily has been helpful. ROS Const Constitutional: No fatigue, fever(s) or weight change ENT ENT: No difficulty swallowing Gastro GI: No abdominal pain, belching, bloating, change in bowel habits, change in stool character, coffee ground emesis, constipation, cramping, diarrhea, heartburn, difficulty swallowing, feeling full early, excessive flatus, incontinent of stools, Vomiting blood/hematemesis, Blood in stool, loose stools, Black,tarry stools, nausea/dyspepsia, pain with swallowing, vomiting or other Musc Musculoskeletal: No joint pain Skin Skin: No yellowing of the eye or itchy eyes Psych Psychiatric: No anxiety and No depression Endo Endocrine: No fatigue or weight change Aller/Imm Allergy/Immunologic: No itchy eyes Rogers/Lymp Hematologic/Lymphatic: No easy bleeding or easy bruising Exam Const General: cooperative and comfortable Nutritional Appearance: average body habitus and well nourished [facility] Head: normal to inspection Ears: hearing grossly normal bilaterally Nose: external nose normal Face and sinus: normal facial exam Eyes General: appearance normal, both eyes and all related structures Neck Neck: normal visual inspection Chest Chest palpation inspection: normal inspection of the chest and normal palpation of entire chest wall Resp Effort Inspection: normal respiratory effort Auscultation: Bilateral: Clear to Auscultation Cardio Palpation: normal PMI Rate: regular rate Rhythm: regular rhythm GI Inspection: normal to inspection Auscultation: normal bowel sounds Percussion: normal to percussion Palpation: no hepatosplenomegaly Skin General: no rashes or lesions noted Neuro General: patient alert Extrem General: normal to inspection Psych Affect: normal affect Assessment and Plan Assessment and Plan (1) Globus sensation: Status: Acute Plan: This is a 18 yo male pt here today for f/u regarding his heartburn and globus sensation. Pt has been doing better on omeprazole 40 mg daily. He did discontinues famotidine. Since he is having so further GI symptoms I advised that he can decrease his omeprazole to 20 mg daily. Will consider EGD if globus sensation comes back to rule out EOE as he has asthma and allergies. He is agreeable and will f/u as needed. -Decrease pantoprazole to 20 mg daily -consider EGD to rule out EOE -f/u as needed (2) Heartburn: Status: Acute Medications: New omeprazole 20 mg PO QDAY 60 caps 2RF Discontinued omeprazole Discontinued Reason: Duplicate Order 40 mg PO QDAY 90 caps 2RF famotidine Discontinued Reason: Order Changed 40 mg PO DAILY Coding Level of Care Code Off vis,est,level 3 Diagnoses Globus sensation R09.A2 Heartburn R12 09/01/24 1430 Date Fallon Carter (more content not included)... Normal [facility] Gastroenterology Visit Repor ton 06-02-2024 Gastroenterology Visit Report [facility] Gastroenterology [address] [place] [address] OFFICE VISIT Date of Service: 06/02/24 MR#: [id number] Acct: [id number] Name: KENDALL PAREKH Rep #: [id number] : 2005 Provider: ROBBY Mcneill Age/Sex: 18/M Location: [facility] Status: Signed Intake Vital Signs 08/25/23 14:16 Height 6 ft 1 in Weight: 201 lb BMI 26.5 BP 153/86 H Blood Pressure Location Rt brachial Position Sitting Respiration 16 Pulse 85 Pulse Source Monitor Temp 97.8 F Pulse Oximetry (%) 96 Oxygen Delivery Method room air Intake Visit Reasons: Gastroesophageal reflux disease (GERD) Chief Complaint: globus sensation Allergies Seasonal Allergies: Uncoded Allergy (Intermediate, Verified 08/25/23 14:16) Other Environmental Allergies: Uncoded Allergy (Verified 08/25/23 14:16) Shortness of breath Medications ???Medication ???Instructions ???Recorded ???Confirmed ???Type montelukast 10 mg tablet 10 mg PO DAILY 08/27/21 06/02/24 History famotidine 40 mg tablet 40 mg PO DAILY 12/14/21 06/02/24 History omeprazole 40 mg capsule,delayed 40 mg PO QDAY #90 caps 06/02/24 06/02/24 Rx release Have you fallen in the past year?: No Nurse's Note: OV 06.02.24 Pt here to establish care with [facility] for indigestion, heartburn and bloating. Pt reports that after he eats it feels like something is stuck in his throat. Pt has been taking famotidine for two years. [facility] Medical History (Updated 06/02/24 @ 14:50 by ROBBY Mcneill) Heartburn Asthma GERD (gastroesophageal reflux disease) Surgical History H/O hernia repair H/O wisdom tooth extraction History of herniorrhaphy Family History Father Diabetes Hypertension Sleep apnea Mother Sleep apnea Depression Social History Smoking Status: Never smoker second hand exposure: Yes HPI HPI Chief Complaint: globus sensation Details: KENDALL PAREKH, is a 18 M who presents to the office today for establishment with [facility]. Over the past 3 years pt has been having feelings of a pea in his throat. This happens intermittently after eating solids and liquids. He also is having heartburn after eating spicy foods. He will often have coughing fits after eating. He has hx of asthma and seasonal allergies which started about 5 years ago. He has never had an EGD before ROS Const Constitutional: No fatigue, fever(s) or weight change ENT ENT: No difficulty swallowing Gastro GI: Positive for bloating, heartburn and excessive flatus; No abdominal pain, belching, change in bowel habits, change in stool character, coffee ground emesis, constipation, cramping, diarrhea, difficulty swallowing, feeling full early, incontinent of stools, Vomiting blood/hematemesis, Blood in stool, loose stools, Black,tarry stools, nausea/dyspepsia, pain with swallowing, vomiting or other Musc Musculoskeletal: No joint pain Skin Skin: No yellowing of the eye or itchy eyes Psych Psychiatric: No anxiety and No depression Endo Endocrine: No fatigue or weight change Aller/Imm Allergy/Immunologic: No itchy eyes Rogers/Lymp Hematologic/Lymphatic: No easy bleeding or easy bruising Exam Const General: cooperative and comfortable Nutritional Appearance: average body habitus and well nourished [facility] Head: normal to inspection Ears: hearing grossly normal bilaterally Nose: external nose normal Face and sinus: normal facial exam Eyes General: appearance normal, both eyes and all related structures Neck Neck: normal visual inspection Chest Chest palpation inspection: normal inspection of the chest and normal palpation of entire chest wall Resp Effort Inspection: normal respiratory effort Auscultation: Bilateral: Clear to Auscultation Cardio Palpation: normal PMI Rate: regular rate Rhythm: regular rhythm GI Inspection: normal to inspection Auscultation: normal bowel sounds Percussion: normal to percussion Palpation: no hepatosplenomegaly Skin General: no rashes or lesions noted Neuro General: patient alert Extrem General: normal to inspection Psych Affect: normal affect Assessment and Plan Assessment and Plan (1) Gastroesophageal reflux disease: (2) Globus sensation: Status: Acute Plan: This is a 18 yo male pt here today for establishment. Pt has had a globus sensation over the past 3 years intermittently. He has a hx of asthma and seasonal allergies. He is unaware of any food allergies. I recommended he undergo EGD to assess for EOE or GERD. He would prefer to try a course of omeprazole 40 mg for 3 months and then f/u. He is currently only on famotidine 40 mg daily which is rachel (more content not included)... Normal [facility] Wrist min 3 Viewson 04-27-20 24 Wrist min 3 Views [facility] [address] [place], [place] [id number] Wrist min 3 Views MR#: [id number] Acct: [id number] Name: KENDALL PAREKH Rep #: [id number] : 2005 M 18 From: Nehemias Fallon MD PCP: Dr. Miah Velasquez DO Status: REG CLI Study: Wrist min 3 Views Date of Exam: 04/27/24 Exam# [id number] Ordering Dr: Miah Velasquez DO [id number] STUDY: X-RAY - RIGHT WRIST REASON FOR EXAM: Male, 18 years old. persistent right wrist pain TECHNIQUE: 3 view(s) of the wrist were obtained. COMPARISON: None. FINDINGS: Normal visualized distal radius and ulna. Normal radiocarpal articulation. Normal distal radioulnar articulation. Normal carpal bones. Normal carpal articulations. Normal carpometacarpal articulation of the thumb. Normal second through fifth carpometacarpal articulations. Normal visualized metacarpal bones. The soft tissue structures are unremarkable. RAD/Wrist min 3 Views IMPRESSION: Normal x-ray examination of the wrist. Electronically Signed: Nehemias Fallon MD at 19:16 EDT Reading Location ID and State: [facility] / [place] Tel , Service support , CC: Dr. Miah Velasquez DO Groover Operator: Signed Normal [facility] Absolute lymphocyte countOrd ered By: Dr. Stone on 11-04-2022 Lymphocytes Auto (Unsp spec) [#/Vol] 1.19 10*3/uL 0.83-4.51 [facility] Basophil percentageOrdered B y: Dr. Stone on 11-04-2022 Basophils/100 WBC (Bld) 0.8 % 0-1 [facility] Chloride [Moles/Vol] 105 mmol/L 98-107 [facility] Eosinophils/100 WBC (Bld) 4.0 % 0-3 [facility] Glucose [Mass/Vol] 91 mg/dL 74-106 [facility] Neutrophils (Bld) [#/Vol] 3.0 10*3/uL 2.0-7.7 [facility] Neutrophils/100 WBC (Bld) 61.5 % 34-64 [facility] Potassium [Moles/Vol] 4.1 mmol/L 3.5-5.1 [facility] Sodium [Moles/Vol] 138 mmol/L 136-145 [facility] WBC (Bld) [#/Vol] 5.0 10*3/uL 4.5-13.0 [facility] Blood erythrocytes count (nu mber/volume)Ordered By: Dr. Stone on 11-04-2022 RBC (Bld) [#/Vol] 5.72 10*6/uL 4.5-5.1 [facility] Blood hemoglobin measurement (mass/volume)Ordered By: Dr. Stone on 11-04-2022 Hemoglobin (Bld) [Mass/Vol] 16.8 g/dL 13.0-16.5 [facility] Blood lymphocytes/100 leukoc ytesOrdered By: Dr. Stone on 11-04-2022 Lymphocytes/100 WBC (Bld) 24.0 % 25-45 [facility] Blood monocytes/100 leukocyt esOrdered By: Dr. Stone on 11-04-2022 Monocytes/100 WBC (Bld) 9.5 % 3-6 [facility] Blood platelet mean volumeOr dered By: Dr. Stone on 11-04-2022 Platelet mean volume (Bld) [Entitic vol] 9.9 fL 6.2-12.0 [facility] Determination of erythrocyte mean corpuscular volume (MCV)Ordered By: Dr. Stone on 11-04-2022 MCV (RBC) [Entitic vol] 85.8 fL 78-96 [facility] Hematocrit Auto (Bld) [Volum e fraction]Ordered By: Dr. Stone on 11-04-2022 Hematocrit (Bld) [Volume fraction] 49.1 % 36-47 [facility] Laboratory - Chemistry and C hemistry - challengeOrdered By: Dr. Stone on 11-04-2022 CO2 [Moles/Vol] 27.0 mmol/L 21.0-32.0 [facility] Urea nitrogen/Creatinine [Mass ratio] 9.8 mg/mg 10-20 [facility] Laboratory - Hematology and Cell countsOrdered By: Dr. Stone on 11-04-2022 Erythrocyte distribution width (RBC) [Entitic vol] 38.5 fL 35.1-43.9 [facility] Erythrocyte distribution width (RBC) [Ratio] 12.5 % 11.6-14.6 [facility] Immature granulocytes/100 WBC (Bld) 0.200 % 0.0-0.9 [facility] Comment on above: IG% - Immature Granu locytes (promyelocytes, myelocytes and metamyelocytes) > 1% indicates that a LEFT SHIFT is Present. MCH (RBC) [Entitic mass] 29.4 pg 25.0-35.0 [facility] Nucleated RBC/100 WBC (Bld) [Ratio] 0 % 0-5 [facility] MCHC Auto (RBC) [Mass/Vol]Or dered By: Dr. Stone on 11-04-2022 MCHC (RBC) [Mass/Vol] 34.2 g/dL 32-36 [facility] No Panel InformationOrdered By: Dr. Stone on 11-04-2022 Estimated Creatinine Clearance Calc 147.16 ml/min [facility] Estimated GFR (MDRD) Amer 137 mL/min >60 [facility] Comment on above: GFR Calc Estimated GFR (MDRD) Non-Af Amer 113 mL/min >60 [facility] Comment on above: Non- GFR Calc Thyroid Stimulating Hormone (TSH) 3.77 uIU/mL 0.358-3.74 [facility] Platelets bldOrdered By: Dr. Stone on 11-04-2022 Platelets (Bld) [#/Vol] 333 10*3/uL 150-450 [facility] Serum or plasma calcium laura urement (mass/volume)Ordered By: Dr. Stone on 11-04-2022 Calcium [Mass/Vol] 9.8 mg/dL 8.5-10.1 [facility] Serum or plasma creatinine m easurement (mass/volume)Ordered By: Dr. Stone on 11-04-2022 Creatinine [Mass/Vol] 0.92 mg/dL 0.70-1.30 [facility] Comment on above: The validity of the calculated GFR & GFRAA in patients over 70 years has not been determined. Clinical correlation is essential. Serum or plasma urea nitroge n measurement (mass/volume)Ordered By: Dr. Stone on 11-04-2022 Urea nitrogen [Mass/Vol] 9 mg/dL 7-18 [facility] Thin prep Papanicolaou smear with manual screeningOrdered By: Dr. Stone on 11-04-2022 Thin prep Papanicolaou smear with manual screening 6 5-15 [facility] Laboratory - Microbiology an d Antimicrobial susceptibilityon 10-07-2022 S. pyogenes Ag IA Ql (Unsp spec) Negative [facility] SARS-CoV-2 (COVID-19) RNA GERARDO+probe Ql (Unsp spec) Not detected [facility] No Panel Informationon 10-07 Influenza Types A,B Rapid (Clinic) Not detected [facility] Absolute lymphocyte counton 10-24-2021 Lymphocytes Auto (Unsp spec) [#/Vol] 1.30 10*3/uL 0.83-4.51 [facility] Work Phone: Alternaria alternata IgE ser umon 10-24-2021 A. alternata IgE Qn (S) 12.80 kU/L Class IV [facility] Work Phone: Atypical perinuclear antineu trophil cytoplasmic antibodies measurementon 10-24-2021 Neutrophil cytoplasmic Ab.perinuclear.atypical IF (S) [Titer] <1:20 titer Neg:<1:20 [facility] Work Phone: Comment on above: The atypical pANCA p attern has been observed in asignificant percentage of patients with ulcerative colitis,primary sclerosing cholangitis and autoimmune hepatitis. Basophil percentageon 2021 Basophils/100 WBC (Bld) 0.3 % 0-1 [facility] Work Phone: Eosinophils/100 WBC (Bld) 1.7 % 0-3 [facility] Work Phone: Neutrophils (Bld) [#/Vol] 4.1 10*3/uL 2.0-7.7 [facility] Work Phone: Neutrophils/100 WBC (Bld) 68.6 % 34-64 [facility] Work Phone: WBC (Bld) [#/Vol] 6.0 10*3/uL 4.5-13.0 [facility] Work Phone: Blood erythrocytes count (nu mber/volume)on 10-24-2021 RBC (Bld) [#/Vol] 5.53 10*6/uL 4.5-5.1 [facility] Work Phone: [phone] Blood hemoglobin measurement (mass/volume)on 10-24-2021 Hemoglobin (Bld) [Mass/Vol] 16.3 g/dL 13.0-16.5 [facility] Work Phone: [phone] Blood lymphocytes/100 leukoc yteson 10-24-2021 Lymphocytes/100 WBC (Bld) 21.8 % 25-45 [facility] Work Phone: [phone] Blood monocytes/100 leukocyt eson 10-24-2021 Monocytes/100 WBC (Bld) 7.4 % 3-6 [facility] Work Phone: [phone] Blood platelet mean volumeon 10-24-2021 Platelet mean volume (Bld) [Entitic vol] 10.6 fL 6.2-12.0 [facility] Work Phone: Determination of erythrocyte mean corpuscular volume (MCV)on 10-24-2021 MCV (RBC) [Entitic vol] 83.4 fL 78-96 [facility] Work Phone: [phone] Hematocrit Auto (Bld) [Volum e fraction]on 10-24-2021 Hematocrit (Bld) [Volume fraction] 46.1 % 36-47 [facility] Work Phone: [phone] Laboratory - Hematology and Cell countson 10-24-2021 Erythrocyte distribution width (RBC) [Entitic vol] 36.6 fL 35.1-43.9 [facility] Work Phone: [phone] Erythrocyte distribution width (RBC) [Ratio] 11.9 % 11.6-14.6 [facility] Work Phone: [phone] Immature granulocytes/100 WBC (Bld) 0.200 % 0.0-0.9 [facility] Work Phone: Comment on above: IG% - Immature Granu locytes (promyelocytes, myelocytes and metamyelocytes) > 1% indicates that a LEFT SHIFT is Present. MCH (RBC) [Entitic mass] 29.5 pg 25.0-35.0 [facility] Work Phone: [phone] Nucleated RBC/100 WBC (Bld) [Ratio] 0 % 0-5 [facility] Work Phone: [phone] Laboratory - Miscellaneous t estson 10-24-2021 Service comment (Unsp spec) [Interp] Comment [facility] Work Phone: [phone] Comment on above: Levels of Specific I gE Class Description of Class ----- < 0.10 0 Negative 0.10 - 0.31 0/I Equivocal/Low 0.32 - 0.55 I Low 0.56 - 1.40 II Moderate 1.41 - 3.90 III High 3.91 - 19.00 IV Very High 19.01 - 100.00 V Very High >100.00 Very High MCHC Auto (RBC) [Mass/Vol]on 10-24-2021 MCHC (RBC) [Mass/Vol] 35.4 g/dL 32-36 [facility] Work Phone: [phone] No Panel Informationon 10-24 Common Ragweed (Short) Allergen 0.71 kU/L Class II [facility] Work Phone: [phone] Estonian Plantain Allergen (RAST) <0.10 kU/L Class 0 [facility] Work Phone: [phone] Immunoglobulin E 356 IU/mL [facility] Work Phone: [phone] Comment on above: Performed at: [address] [id number] Director: Scott Braga PhD, Phone: [phone] at: [address] [id number] Director: Johanna Schreiber MD, Phone: [phone] Mouse Urine Allergen IgE Antibody <0.10 kU/L Class 0 [facility] Work Phone: Comment on above: Performed at: [address] [id number] Director: Johanna Schreiber MD, Phone: [phone] Platelets bldon 10-24-2021 Platelets (Bld) [#/Vol] 298 10*3/uL 150-450 [facility] Work Phone: [phone] Serum Aspergillus flavus ant ibody detection by immunodiffusionon 10-24-2021 A. flavus Ab Immune diff Ql (S) Negative Neg:<1:1 [facility] Work Phone: [phone] Serum Aspergillus fumigatus antibody detection by immunodiffusionon 10-24-2021 A. fumigatus Ab Immune diff Ql (S) Negative Neg:<1:1 [facility] Work Phone: [phone] Serum Aspergillus niger anti body detection by immunodiffusionon 10-24-2021 A. niger Ab Immune diff Ql (S) Negative Neg:<1:1 [facility] Work Phone: Serum Bermuda grass IgE anti body assay (units/volume)on 10-24-2021 Bermuda grass IgE Qn (S) 0.14 kU/L Class 0/I [facility] Work Phone: Serum Dermatophagoides farin ae specific IgE antibody assay (units/volume)on 10-24-2021 Bruneian house dust mite IgE Qn (S) 1.81 kU/L Class III [facility] Work Phone: [phone] Serum house dust mi te IgE antibody assay (units/volume)on 10-24-2021 house dust mite IgE Qn (S) 2.27 kU/L Class III [facility] Work Phone: [phone] Serum [place] blue grass Ig E antibody assay (units/volume)on 10-24-2021 [place] blue grass IgE Qn (S) 2.41 kU/L Class III [facility] Work Phone: Serum cat dander IgE antibod y assay (units/volume)on 10-24-2021 Cat dander IgE Qn (S) <0.10 kU/L Class 0 [facility] Work Phone: Serum classic neutrophil cyt oplasmic antibody assay (units/volume)on 10-24-2021 Neutrophil cytoplasmic Ab.classic Qn (S) <1:20 titer Neg:<1:20 [facility] Work Phone: Serum dog epithelium IgE ant ibody assay (units/volume)on 10-24-2021 Dog epithelium IgE Qn (S) <0.10 kU/L Class 0 [facility] Work Phone: Serum perinuclear neutrophil cytoplasmic antibody titer by immunofluorescenceon 10-24-2021 Neutrophil cytoplasmic Ab.perinuclear IF (S) [Titer] <1:20 titer Neg:<1:20 [facility] Work Phone: Comment on above: The presence of posi tive fluorescence exhibiting P-ANCA orC-ANCA patterns alone is not specific for the diagnosis ofWegener's Granulomatosis (WG) or microscopic polyangiitis.Decisions about treatment should not be based solely onANCA IFA results. The [employer] ANCA Group Consensusrecommends follow up testing of positive sera with both CT-3 and MPO-ANCA enzyme immunoassays. As many as 5% serumsamples are positive only by EIA. Ref. AM J Clin [id number];111:507-513. Serum white elm IgE antibody assay (units/volume)on 10-24-2021 White Elm IgE Qn (S) 0.13 kU/L Class 0/I [facility] Work Phone: Serum white oak IgE antibody assay (units/volume)on 10-24-2021 [place] IgE Qn (S) <0.10 kU/L Class 0 [facility] Work Phone: Vital Signs Date Time Vital Sign Value Performing Clinician Faci lity 11-04-2022 11:27-0400 Diastolic blood pressure 86 mm[Hg] Dr. Miah Velasquez Work Phone: [facility] 11-04-2022 11:27-0400 Heart rate 59 /min Dr. Miah Velasquez Work Phone: [facility] 11-04-2022 11:27-0400 Respiratory rate 18 /min Dr. Miah Velasquez Work Phone: [facility] 11-04-2022 11:27-0400 SaO2% (BldA) [Mass fraction] 99 % Dr. Miah Velasquez Work Phone: [facility] 11-04-2022 11:27-0400 Systolic blood pressure 131 mm[Hg] Dr. Miah Velasquez Work Phone: [facility] 11-04-2022 10:00-0400 Body height 185.[address] Miah Velasquez Work Phone: [facility] 11-04-2022 10:00-0400 Body mass index (BMI) [Percentile] Per age and sex 90.6 % Dr. Miah Velasquez Work Phone: [facility] 11-04-2022 10:00-0400 Body mass index (BMI) [Ratio] 27.7 kg/m2 Dr. Miah Velasquez Work Phone: [facility] 11-04-2022 10:00-0400 Body temperature 97.8 [degF] Dr. Miah Velasquez Work Phone: [facility] 11-04-2022 10:00-0400 Body weight 95.[address] Miah Velasquez Work Phone: [facility] 10-07-2022 10:44-0400 Body temperature 97.8 [degF] Dr. Miah Velasquez Work Phone: [facility] 10-07-2022 10:44-0400 Diastolic blood pressure 86 mm[Hg] Dr. Miah Velasquez Work Phone: [facility] 10-07-2022 10:44-0400 Heart rate 100 /min Dr. Miah Velasquez Work Phone: [facility] 10-07-2022 10:44-0400 Respiratory rate 16 /min Dr. Miah Velasquez Work Phone: [facility] 10-07-2022 10:44-0400 SaO2% (BldA) [Mass fraction] 98 % Dr. Miah Velasquez Work Phone: [facility] 10-07-2022 10:44-0400 Systolic blood pressure 134 mm[Hg] Dr. Miah Velasquez Work Phone: [facility] 10-24-2021 13:19-0400 Body height 186.[address] Faheem Sharpe Work Phone: [facility] Work Phone: 10-24-2021 13:19-0400 Body mass index (BMI) [Ratio] 26.2 kg/m2 Dr. Faheem Sharpe Work Phone: [facility] Work Phone: 10-24-2021 13:19-0400 Body temperature 97.4 [degF] Dr. Faheem Sharpe Work Phone: [facility] Work Phone: 10-24-2021 13:19-0400 Body weight 91.[address] Faheem Sharpe Work Phone: [facility] Work Phone: 10-24-2021 13:19-0400 Diastolic blood pressure 84 mm[Hg] Dr. Faheem Sharpe Work Phone: [facility] Work Phone: 10-24-2021 13:19-0400 Heart rate 69 /min Dr. Faheem Sharpe Work Phone: [facility] Work Phone: 10-24-2021 13:19-0400 Respiratory rate 18 /min Dr. Faheem Sharpe Work Phone: [facility] Work Phone: 10-24-2021 13:19-0400 SaO2% (BldA) [Mass fraction] 96 % Dr. Faheem Sharpe Work Phone: [facility] Work Phone: 10-24-2021 13:19-0400 Systolic blood pressure 146 mm[Hg] Dr. Faheem Sharpe Work Phone: [facility] Work Phone: 08-27-2021 12:05-0500 Body mass index (BMI) [Ratio] 26.7 kg/m2 Dr. Faheem Sharpe Work Phone: [facility] Work Phone: 08-27-2021 12:05-0500 Body temperature 97.3 [degF] Dr. Faheem Sharpe Work Phone: [facility] Work Phone: 08-27-2021 12:05-0500 Body weight 92.[address] Faheem Sharpe Work Phone: [facility] Work Phone: 08-27-2021 12:05-0500 Diastolic blood pressure 79 mm[Hg] Dr. Faheem Sharpe Work Phone: [facility] Work Phone: 08-27-2021 12:05-0500 Heart rate 70 /min Dr. Faheem Sharpe Work Phone: [facility] Work Phone: 08-27-2021 12:05-0500 Respiratory rate 16 /min Dr. Faheem Sharpe Work Phone: [facility] Work Phone: 08-27-2021 12:05-0500 SaO2% (BldA) [Mass fraction] 98 % Dr. Faheem Sharpe Work Phone: [facility] Work Phone: 08-27-2021 12:05-0500 Systolic blood pressure 132 mm[Hg] Dr. Faheem Sharpe Work Phone: [facility] Work Phone: Encounters Encounter Date Encounter Type Care Provider Facility Start: 03-16-2025 ambulatory Marcellus Modi Facility :[facility] Start: 01-26-2025 End: 01-26-2025 Patient encounter procedure Fallon BUSTAMANTE -[facility] Work Phone: Start: 01-26-2025 End: 01-26-[address] Miah Velasquez DO Work Phone: -[facility] Start: 10-26-2024 End: 10-26-[address] Miah Velasquez DO Work Phone: [facility] Work Phone: Start: 10-26-2024 End: 10-26-[address] Maih Velasquez DO -Physical Therapy Work Phone: Start: 09-01-2024 End: 09-01-2024 Patient encounter procedure Fallon BUSTAMANTE -[facility] Work Phone: Start: 09-01-2024 End: 09-01-2024 ambulatory Miah Velasquez Facility:[facility] Start: 06-02-2024 End: 06-02-2024 ambulatory Miah Velasquez Facility:[facility] Start: 04-27-2024 End: 04-27-2024 ambulatory Miah Velasquez Facility:[facility] Start: 11-13-2022 End: 11-13-[address] Miah Velasquez Work Phone: [facility] Work Phone: Start: 11-13-2022 End: 11-13-[address] Miah Velasquez Work Phone: [facility]Pulmonary Services/Neurology Start: 11-04-2022 End: 11-04-2022 Emergency department patient visit Dr. Miah Velasquez Work Phone: [facility]Emergency Department Start: 10-07-2022 End: 10-07-[address] Miah Velasquez Work Phone: [facility] Start: 10-24-2021 End: 10-24-[address] Faheem Sharpe Work Phone: [facility]Laboratory Start: 09-05-2021 Non-patient / Non-visit Dr. Faheem Sharpe Work Phone: [facility] Start: 09-05-2021 End: 09-05-[address] Faheem Sharpe Work Phone: [facility] Services/Neurology Start: 08-27-2021 End: 08-27-[address] [facility] Start: 07-24-2021 End: 07-24-[address] Faheem Sharpe Work Phone: [facility]-Laboratory, Specimen Procedures Date Procedure Procedure Detail Performing Clinician Start: 11-04-2022 Plain chest X-ray Dr. James Velasquez Work Phone: Plan of Treatment Date Care Activity Detail Author Patient Education ED Palpitations [facility] Work Phone: Patient referral [facility] Work Phone: Immunizations Immunization Date Immunization Notes Care Provider Fa cility 12-14-2021 tetanus toxoid, redu kyle diphtheria toxoid, and acellular pertussis vaccine, adsorbed Dr. Miah Velasquez Work Phone: [facility] Payers Date Payer Category Payer Self-pay [id number] 2022 Unknown [id number] Private Health Insurance [id number] Unknown [facility] [id number] Unknown [id number] Unknown [id number] Unknown [id number] 62 Unknown [id number] 62 Unknown [id number] 62 Unknown [id number] 62 Unknown [id number] 62 Social History Date Type Detail Facility Start: 10-24-2021 End: 11-04-2022 Tobacco smoking status OKIS Unknown if ever smoked [facility] Start: 2005 Sex Assigned At Male [facility] Start: 08-25-2023 Tobacco smoking stat us OKIS Never smoked tobacco (finding) [facility] Start: 10-27-2024 Sex Male (finding) [facility] Mental Status Date Assessment Result Facility 11-04-2022 Cognitive function Voice/Name [facility] Work Phone: Discharge summary 10-26-2024 Note Date & Type Note Facility 10-26-2024 Discharge summary Note Date/Time October 26, 2024 7:00pm [facility] Physical Therapy [facility] [address] [place] [address]. [address] [place] [address] / REHABILITATION SERVICES DISCHARGE SUMMARY MR#: [id number] Acct: [id number] Name: KENDALL PAREKH Rep #: [id number] : 2005 18 From: Cert. CLAUDIA Umana, OCS Referring Dr.: Dr. Miah Velasquez, DO Status: REG RCR Insurance: [employer]ANCE Discharge Summary D/C summary: It has been my pleasure to treat KENDALL PAREKH referred by Dr. Miah Velasquez DO, with the diagnosis of BACK PAIN for a total of 7 visit(s). Discharge Date: 10/26/24 Please see the following information for a summary of their discharge status. Subjective Subjective: 2 years but 2 months a lot worse Pain is intermittent Pain Right Back: Pain Intensity (Out of 10): 0 Right Lower Extremity: Pain Intensity (Out of 10): 0 Overall Improvement % Improvement: 50 Objective Objective/Function: POSTURE: mild forward posture , reduce lordosis GAIT: reciprocal pattern PALPATION: tender right lumbar transverse NEURO: denies paresthesia/tingling ,occasionally right ight ,reflexes L3-4 ,L4-5,L5-S1 2/3 LUMBAR ROM: flexion WFL ,extension WFL ,side glides min loss FLEXABILITY : min tight MMT: quads/hams 4/5 ,hip 4/5 ,ankle 5/5 Goals Goal 1:: Patient to be I with HEP Goal 2:: Patient to demonstrate 70% improvement with less pain and improve function Goal Progress: Progressing Goal 3:: Patient return to function of recovery for job demand's and good sitting posture Goal Progress: Goal Met Goal 4:: Patient to improve back oswestry score by 5 points to improve QOL and function Goal Progress: Goal Met Goal 5:: Patient to improve posture/body mechanics 90% of the time with job demands, Goal Progress: Goal Met Plan Plan: D/C D/C Information Discharge Comments: 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 Thank you for the referral of thispatient. Sincerely, Des Eaton PT, Cert T, OCS Balance/Gait/Functional tests Balance/Special Test Scores Oswestry Low Back Score: 6 Improvement % Improvement: 50 <Electronically signed by Zoran Rawls PT. CLAUDIA, JODI> 10/27/24 1227 CC: Dr. Miah Velasquez DO ~ JLA Signed [facility] Work Phone: Discharge summary 10-26-2024 Note Date & Type Note Facility 10-26-2024 Discharge summary [facility] Evaluation note 09-01-2024 Note Date & Type Note Facility 09-01-2024 Evaluation note Diagnosis Onset Date Resolution Globus sensation acute September 01, 2024 2:03pm Heartburn acute September 01, 2024 2:03pm [facility] Work Phone: SARS-CoV RNA GERARDO+probe Ql (Unsp spec) 07-24-2021 Note Date & Type Note Facility 07-24-2021 SARS-CoV RNA GERARDO+ probe Ql (Unsp spec) [facility] Work Phone: Coronavirus 2019 (GERARDO) July 25, 2021 12:59am Detected Not Detected Patients who have a positive COVID-19 test result may nowhave treatment options. Treatment options are available forpatients with mild to moderate symptoms and forhospitalized patients. Visit our website [email or web address] for resources andinformation.This nucleic acid amplification test was developed and itsperformance characteristics determined by [facility]. Nucleic acid amplification tests include RT-PCR and TMA. This test has not been FDA cleared orapproved. This test has been authorized by FDA under anEmergency Use Authorization (EUA). This test is onlyauthorized for the duration of time the declaration thatcircumstances exist justifying the authorization of theemergency use of in vitro diagnostic tests for detection [id number] virus and/or diagnosis of COVID-19 infectionunder section 564(b)(1) of the Act, 21 U.S.C. 360bbb-3(b)(1), unless the authorization is terminated or revokedsooner.When diagnostic testing is negative, the possibility of afalse negative result should be considered in the contextof a patient's recent exposures and the presence ofclinical signs and symptoms consistent with COVID-19. Anindividual without symptoms of COVID-19 and who is notshedding SARS-CoV-2 virus would expect to have a negative(not detected) result in this assay. Comment on above: Patients who have a positive COVID-19 test result may nowhave treatment options. Treatment options are available forpatients with mild to moderate symptoms and forhospitalized patients. Visit our website [email or web address] for resources andinformation.This nucleic acid amplification test was developed and itsperformance characteristics determined by [facility]. Nucleic acid amplification tests include RT-PCR and TMA. This test has not been FDA cleared orapproved. This test has been authorized by FDA under anEmergency Use Authorization (EUA). This test is onlyauthorized for the duration of time the declaration thatcircumstances exist justifying the authorization of theemergency use of in vitro diagnostic tests for detection [id number] virus and/or diagnosis of COVID-19 infectionunder section 564(b)(1) of the Act, 21 U.S.C. 360bbb-3(b)(1), unless the authorization is terminated or revokedsooner.When diagnostic testing is negative, the possibility of afalse negative result should be considered in the contextof a patient's recent exposures and the presence ofclinical signs and symptoms consistent with COVID-19. Anindividual without symptoms of COVID-19 and who is notshedding SARS-CoV-2 virus would expect to have a negative(not detected) result in this assay. Evaluation note Note Date & Type Note Facility Evaluation note Diagnosis Onset Date Asthma acute Asthma acute [facility] Work Phone: Evaluation note Note Date & Type Note Facility Evaluation note Diagnosis Onset Date Acute pharyngitis acute Contact with or suspected ex posure to other viral communicable disease acute [facility] Work Phone: Evaluation note Note Date & Type Note Facility Evaluation note Diagnosis Onset Date Resolution Gastroesophageal reflux disease noneactive January 26, 2025 1:34pm [facility] Work Phone: Reason for referral (narrative) Note Date & Type Note Facility Reason for referral (narrative) No reason for referral information available [facility] Work Phone: Chief Complaint and Reason for Visit Chief Complaint Asthma ASTHMA Asthma 2 M FU E-ORDER Reason for Visit Asthma Asthma Chief Complaint BERGER/FEVER/SORE THROAT /RIGHT EAR PAIN PALP PALPITATION Reason for Visit Acute pharyngitis Contact with or suspected exposure to other viral communicable disease Chief Complaint Admit Date 3 M FU September 01, 2024 2:03pm LBP DR TO FAX October 26, 2024 4:3 0pm Reason for Visit Admit Date Globus sensation September 01, 2024 2:03pm Heartburn September 01, 2024 2:03pm Chief Complaint Admit Date LBP DR TO FAX October 26, 2024 4:3 0pm Acid reflux January 26, 2025 1:34 pm Reason for Visit Admit Date Gastroesophageal reflux disease January 1:34pm Family History No Family History Records Found Relationship Condition Age at Onset Recorded Date/T ameena father Diabetes mellitus Unknown Hypertension Unknown Sleep apnea Unknown mother Sleep apnea Unknown Depression Unknown Advance Directives No Advanced Directives Records Found Advance Directive Response Recorded Date/ Time Living Will No November 04, 2022 10:07am Power of Sole Conditioner No November 04 10:07am Summary Purpose Additional Source Comments Goals (unrecognized section and content) Goals may be documented in a n alternate sectionGoals may be documented in an alternate sectionGoals may be documented in an alternate sectionGoals may be documented in an alternate section Care Teams (unrecognized sec tion and content) Team Status: Active Member Role Status Dates Dr. Faheem Sharpe MD Family Provider Active Dr. Miah Velasquez DO Primary Care Provider Active Team Status: Inactive Member Role Status Dates Dr. Miah Velasquez DO Primary Care Provider, Referrin g Provider Active Derick BUSTAMANTE, [place] Attending Provider Active Team Status: Inactive Member Role Status Dates Dr. Miah Velasquez DO Primary Care Provider Active Dr. Monisha Stone MD Attending Provider, Emergency Provider Active Team Status: Inactive Member Role Status Dates Dr. Miah Velasquez DO Primary Care Prov ider, Attending Provider, Referring Provider Active Team Status: Active Member Role Status Dates Dr. Miah Velasquez DO Primary Care Provider Active Team Status: Inactive Member Role Status Dates Dr. Miah Velasquez DO Primary Care Provider Active Start: September 01, 2024 End: September 01, 2024 Dr. Miah Velasquez DO Referring Provider Active Start: September 01, 2024 End: September 01, 2024 ROBBY Mcneill Attending Provider Active Start: September 01, 2024 End: September 01, 2024 Team Status: Inactive Member Role Status Dates Dr. Miah Velasquez DO Primary Care Provider Active Start: October 26, 2024 End: October 26, 2024 Dr. Miah Velasquez DO Attending Provider Active Start: October 26, 2024 End: October 26, 2024 Dr. Miah Velasquez DO Referring Provider Active Start: October 26, 2024 End: October 26, 2024 Team Status: Active Member Role/Relationship Status Dates Dr. Miah Velasquez DO Primary Care Provider Active Team Status: Inactive Member Role/Relationship Status Dates Dr. Miah Velasquez DO Primary Care Provider Active Start: October 26, 2024 End: October 26, 2024 Dr. Miah Velasquez DO Attending Provider Active Start: October 26, 2024 End: October 26, 2024 Dr. Miah Velasquez DO Referring Provider Active Start: October 26, 2024 End: October 26, 2024 Team Status: Inactive Member Role/Relationship Status Dates Dr. Miah Velasquez DO Primary Care Provider Active Start: January 26, 2025 End: January 26, 2025 Dr. Miah Velasquez DO Referring Provider Active Start: January 26, 2025 End: January 26, 2025 ROBBY Mcneill Attending Provider Active Start: January 26, 2025 End: January 26, 2025 (unrecognized sect ion and content) No Status Records Found INFORMATION SOURCE (unrecogn ized section and content) DATE CREATED AUTHOR 03/16/2025 [facility] FOR RECORDS PERTAINING TO PATIENTS WHO ARE OR HAVE BEEN ENROLLED IN A CHEMICAL DEPENDENCY/SUBSTANCEABUSE PROGRAM, SOME INFORMATION MAY BE OMITTED. This clinical summary was aggregated from multiple sources. Caution should be exercised in using it in the provision of clinical care. This summary normalizes information from multiple sources, and as a consequence, information in this document may materially change the coding, format and clinical context of patient data. In addition, data may be omitted in some cases. CLINICAL DECISIONS SHOULD BE BASED ON THE PRIMARY CLINICAL RECORDS. [employer] provides no warranty or guarantee of the accuracy or completeness of information in this document.
--- NOTE | 2025-03-16 06:53 | PCM.HP.STD ---
HPI - General General Date of Admission: 03/16/25 Date of Service: 03/16/25 Chief Complaint: GERD HPI Narrative KENDALL PAREKH, is a 19 M who presents with the Chief Complaint: heartburn BGI established 11.15.24 with globus sensation for the past 3 years. Feels this intermittently after eating solids and liquids. Pt also with heartburn. PMHx of asthma and seasonal allergies. *Start omeprazole 40 mg daily, continue famotidine, consider EGD OV 2 Pt has been doing well. He is no longer having any heartburn. The globus sensation has also gone away. He feels the omeprazole 40 mg daily has been helpful. Consider EGD to rule out EOE. OV 7 Pt discontinued omeprazole following his last appointment. Since then he has had return of symptoms including heartburn, globus sensation and loss of his voice. He finds himself clearing his through often but with no relief. Heartburn is daily and worse when drinking water. Liquids are more aggravating to his symptoms than solids. He did restart famotidine which helped some. He ran out of refills for omeprazole so he did not restart this. ROS Const Constitutional: No anorexia, fatigue, fever(s), weight change or sleep problems Eyes Eyes: No change in vision ENT ENT: Positive for difficulty swallowing; No abnormal hearing, tongue swelling or throat swelling Resp Respiratory: No cough or shortness of breath Cardio Cardiology: No chest pain at rest, chest pain with exertion, shortness of breath or dyspnea on exertion Gastro GI: Positive for difficulty swallowing Genitourinary Male: No difficulty urinating or burning urination Musc Musculoskeletal: No joint pain, joint swelling, muscle weakness or decreased muscle mass Skin Skin: No hair loss in leg, yellowing of the eye, itchy eyes, rash, skin ulcer or skin swelling Neuro Neurology: No abnormal hearing, abnormal movements, confusion, unsteady gait/balance or memory loss Psych Psychiatric: No anxiety, No confusion and No memory loss Endo Endocrine: No fatigue or weight change Aller/Imm Allergy/Immunologic: No itchy eyes, throat swelling or tongue swelling Rogers/Lymp Hematologic/Lymphatic: No easy bleeding, easy bruising or enlarged lymph nodes omeprazole 20 mg PO QDAY 60 caps 4RF [facility] Medical History (Updated 03/16/25 @ 06:[address] Germain Friend, DO) Wears contact lenses Wears glasses Non-smoker History of Holter monitoring Heartburn Asthma GERD (gastroesophageal reflux disease) Home Medications ?Medication ?Instructions ?Recorded ?Last Taken ?Type montelukast 10 mg tablet 10 mg PO DAILY 08/27/21 Unknown History omeprazole 20 mg capsule,delayed 20 mg PO QDAY #60 caps 01/26/25 Unknown Rx release Allergy/AdvReac Type Severity Reaction Status Date / Time Seasonal Allergies: Uncoded Allergy Intermediate Other Verified 03/15/25 15:53 Environmental Allergies: Allergy Shortness Verified 03/15/25 15:53 Uncoded of breath Family History Father Diabetes Hypertension Sleep apnea Mother Sleep apnea Depression Surgical History H/O hernia repair H/O wisdom tooth extraction History of herniorrhaphy Social History Smoking Status: Never smoker second hand exposure: Yes ROS Constitutional Constitutional: Denies fatigue, fever(s), poor appetite, weight gain or weight loss Gastrointestinal Gastrointestinal: Denies belching, bloating, change in bowel habits, change in stool character, chewing difficulty, coffee ground emesis, constipation, cramping, diarrhea, dyspepsia, dysphagia, early satiety, excessive flatus, fecal incontinence, heartburn, hematemesis, hematochezia, hemorrhoids, loose stools, melena, nausea, odynophagia, rectal bleeding, tenesmus, vomiting or weight changes Physical Exam Const alert, oriented x3, no apparent distress and healthy appearing General Appearance: cooperative GI normal to inspection, nondistended, normoactive bowel sounds, soft to palpation, non-tender and non-distended Percussion: normal to percussion Rectal Exam: deferred Assessment & Plan Assessment/Plan (1) Globus sensation: (2) GERD (gastroesophageal reflux disease): PLAN: Assessment and Plan Assessment and Plan (1) Gastroesophageal reflux disease: (2) Globus sensation: Status: Acute Plan: Kendall is a 19 yo male pt here today for f/u regarding his ongoing issues with globus sensation, heartburn and hoarseness. Pt initially treated with omeprazole 40 mg daily and famotidine PRN for about 6 months. During this time his symptoms improved however he ran out of refills and did not continue. Since discontinuation he has had return of his symptoms but this time with changes in his voice. He has constant globus sensation and daily heartburn. He will restart omeprazole 40 mg daily. Script sent. He will also be scheduled for an EGD as I have concern for EOE. -EGD -Re start PPI and famotidine -f/u after procdure (3) Heartburn: Status: Acute Medications: Refilled
--- NOTE | 2025-03-16 07:03 | PCM.PRE.AN2 ---
ASA Classification* ASA Classification ASA Classification: 2 Assessment & Plan Anesthesia* Anesthesia Assessment Anesthesia Assessment: Discussed sedation and/or anesthesia options, risks, benefits, and alternatives with patient/parents/legal guardian/POA. Questions invited. The patient/parents/legal guardian/POA seems to understand and agrees to proceed with anesthesia plan. Reviewed the physical assessment, medical history, allergy history and patient home medications list prior to surgery/procedure/anesthetic and documented any changes. Performed airway and anesthesia risk assessments. Anesthesia Type Anesthesia Type: MAC Anesthesia Focused Assessment* Temperature: 97 F Pulse Rate: 63 Blood Pressure: 142/78 Respiratory Rate: 16 Pulse Ox: 100 Airway Assessment Mouth opens: >3 cm Mallampati Score: II Labs Anesthesia Preop lab: CBC WBC 5.0 K/mm3 (4.5-13.0) 11/04/22 10:38 11/04/22 RBC 5.72 M/mm3 (4.5-5.1) H 11/04/22 10:38 11/04/22 Hgb 16.8 g/dL (13.0-16.5) H 11/04/22 10:38 11/04/22 Hct 49.1 % (36-47) H 11/04/22 10:38 11/04/22 Plt Count 333 K/mm3 (150-450) 11/04/22 10:38 11/04/22 CHEMISTRY Potassium 4.1 mmol/L (3.5-5.1) 11/04/22 10:38 11/04/22 Sodium 138 mmol/L (136-145) 11/04/22 10:38 11/04/22 BUN 9 mg/dL (7-18) 11/04/22 10:38 11/04/22 Creatinine 0.92 mg/dL (0.70-1.30) 11/04/22 10:38 11/04/22 Glucose 91 mg/dL (74-106) 11/04/22 10:38 11/04/22 TSH 3.77 uIU/mL (0.358-3.74) H 11/04/22 10:38 11/04/22 COAG Pre-Assessment Diagnosis/Proposed Procedure Planned Operative Procedure(s): egd Anesthesia History 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 When Was Last Pacemaker Check QUESTION #4 FULL TEXT: You/Your Family Experience fever (hyperthermia) with Anesthesia Last Oral Intake Last Oral intake: Last Oral Intake NPO since 18:00 03/16/25 06:57 Meds taken in AM with sips of water? Meds patient instructed to take am of surgery PONV PONV - project management instructor: PONV - project management instructor Female No 03/15/25 15:58 HX of Motion Sickness No 03/15/25 15:58 HX of N/V After Surgery No 03/15/25 15:58 Non-Smoker Yes 03/15/25 15:58 Duration of Surgery greater No 03/15/25 15:58 than 60 minutes Number of Risk Factors 1 03/15/25 15:58 PONV Score Low Risk 03/15/25 15:58 Height & Weight Height & Weight: Anesthesia: Height & Weight Height 6 ft 1 in 03/16/25 06:57 Weight: 93.894 kg 03/16/25 06:57 Body Mass Index (BMI) 27.3 03/16/25 06:57 Respiratory Assessment Respiratory Assessment - project management instructor: Respiratory Tract Infection Hx - project management instructor Hx Respiratory Tract Infection No 03/15/25 15:58 STOP Sleep Apnea STOP Sleep Apnea - project management instructor: STOP Sleep Apnea - project management instructor Hx Hypertension No 03/15/25 15:58 Hx Sleep Apnea No 03/15/25 15:58 CPAP BIPAP Do you snore loudly (louder No 03/15/25 15:58 than talking or can be heard Do you often feel tired/ No 03/15/25 15:58 fatigued/ sleepy during daytime? Has anyone observed you stop No 03/15/25 15:58 breathing during sleep? STOP Results Negative 03/15/25 15:58 QUESTION #5 FULL TEXT : Do you snore loudly (louder than talking or can be heard through closed doors)? 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 Specify any problems Hx of Preganancy in last 3 N/A 03/15/25 15:58 Months Nurse Filling Out Transfusion [email or web address] 03/15/25 15:58 & Questions: Date: 03/15/25 03/15/25 15:58 Time: 15:59 03/15/25 15:58 Patient unable to answer at this time (ie. confused, unrespo /Reproduction History /Reproductive History - project management instructor: /Reproductive Hx- project management instructor Hx Now No 03/15/25 15:58 Gestational Age (in weeks): EDC: Hx Hx Para Hx Section SAB No 03/15/25 15:58 Active Medications Active Medications: Current Medications Generic Name Dose Route Start Last Admin Trade Name Freq PRN Reason Stop Dose Admin Lactated Ringer's 1,000 mls @ 15 mls/hr 03/16/25 06:45 IV .Q48H MAITE PFSH Medical History Wears contact lenses Wears glasses Non-smoker History of Holter monitoring Heartburn Asthma GERD (gastroesophageal reflux disease) Home Medications ?Medication ?Instructions ?Recorded ?Last Taken ?Type montelukast 10 mg tablet 10 mg PO DAILY 08/27/21 Unknown History omeprazole 20 mg capsule,delayed 20 mg PO QDAY #60 caps 01/26/25 Unknown Rx release Allergy/AdvReac Type Severity Reaction Status Date / Time Seasonal Allergies: Uncoded Allergy Intermediate Other Verified 03/16/25 06:55 Environmental Allergies: Allergy Shortness Verified 03/16/25 06:55 Uncoded of breath Family History Father Diabetes Hypertension Sleep apnea Mother Sleep apnea Depression Surgical History H/O hernia repair H/O wisdom tooth extraction History of herniorrhaphy Social History Smoking Status: Never smoker second hand exposure: Yes Review of Systems (Anesthesia) ROS Narrative System reviewed and no additional complaints, except as documented.
[2025-03-16] MEDS: Lactated Ringers 1,000 ML 15 ML IV (07:07)
--- NOTE | 2025-03-16 07:45 | EGD_PTH ---
PATIENT: PAUL PAREKH LOC: EN U#:[id number] AGE/SX: 19/M ROOM: RE03/16/[address]: Dr. Marcellus Modi DO : 2005 BED: DIS: 03/16/2025 SPEC #: [id number] RECD: 03/16/25 10:19 STATUS: ZOË REQ #: [id number] ARMANDO: 03/16/25 07:[address]: Marcellus Modi DEPT: SURGICAL PATHOLOGY RECD BY: Chris Roberson ENTERED: 03/16/25 13:17 SP TYPE: EGD BIOPSY ROSHNI DR: Dr. Miah Velasquez DO Tissues: A - Esophagus, NOS Procedures: Surgery Specimen Level IV Comments: Spoke to Carleen on 03/30/25 at ~11:25 with verbal results per Dr[address] Galeas. HEADER OPERATION: EGD with biopsy PRE-OP DIAGNOSIS: Gastroesophageal reflux disease, globus sensation TISSUE SUBMITTED: A- Distal esophagus biopsy MICROSCOPIC DIAGNOSIS A. Distal esophagus, biopsy: Squamous mucosa with reactive changes and 5 eosinophils per high power field. Columnar mucosa, negative for goblet cell metaplasia. COMMENT The diagnosis was called to Dr Modi's office by Chris Roberson, 03/30/25. MICROSCOPIC DESCRIPTION Slides are reviewed. GROSS DESCRIPTION A. Received in fixative is one container labeled with the patient's name and designated Distal esophagus biopsy. The specimen consists of three irregular fragments of light deras soft tissue that measure 0.6 to 0.8 cm. The specimen is totally submitted in one cassette. GA 03/16/2025 CPT:25329
--- NOTE | 2025-03-16 08:22 | PCM.POST.ANE ---
Anesthesia: Postop Eval I Current Vital Signs Temperature: 97.2 F Pulse Rate: 75 Blood Pressure: 130/84 Respiratory Rate: 20 Pulse Ox: 97 Oxygen Delivery Method: Room Air Assessment Airway patent: Yes Spontaneous unlabored respirations: Yes Mental status: Awake and Calm nausea: No Vomiting: No Anesthesia Complication: No Fluid Hydration Crystalloid volume administer (ml): 100 Total IV fluid infused: 100 Progress Note Anesthesia document: Postop Eval 1 completed: Yes
--- NOTE | 2025-03-16 08:28 | OP.PROVAT_ITS ---
03/16/2025 Miah Velasquez [address] [facility] [place] [address] Re : Upper GI endoscopy procedure for Kendall Masterson Dear Dr. Velasquez This procedure was performed on Sunday, March 16, 2025. My impressions and recommendations are as follows: Impressions : - LA Grade B reflux esophagitis with no bleeding. Biopsied. - Small hiatal hernia. - No gross lesions in the entire examined duodenum. Recommendations : - Discharge patient to home. - Resume previous diet. - Continue present medications. My findings are described in the full procedure note, which is enclosed. If I can be of further assistance, please feel free to contact me at . Sincerely, Marcellus Modi, 03/16/2025 8:28:09 AM This report has been signed electronically.
--- NOTE | 2025-03-16 08:28 | OP.EGD_ITS ---
Patient Name: Kendall Masterson Procedure Date: 03/16/2025 8:02 AM Date of : 2005 Age: 19 Procedure: Upper GI endoscopy Indications: Heartburn Providers: Marcellus Modi DO Referring MD: Miah Velasquez Medicines: Monitored Anesthesia Care Patient Profile: This is a 19 year old male. Refer to note in patient chart for documentation of history and physical. Patient has symptoms of acute dyspepsia and acute heartburn. Complications: No immediate complications. Procedure: Pre-Anesthesia Assessment: - Prior to the procedure, a History and Physical was performed, and patient medications and allergies were reviewed. The patient is competent. The risks and benefits of the procedure and the sedation options and risks were discussed with the patient. All questions were answered and informed consent was obtained. Patient identification and proposed procedure were verified by the physician in the pre-procedure area. Mental Status Examination: alert and oriented. Airway Examination: normal oropharyngeal airway and neck mobility. Respiratory Examination: clear to auscultation. CV Examination: normal. Prophylactic Antibiotics: The patient does not require prophylactic antibiotics. Prior Anticoagulants: The patient has taken no anticoagulant or antiplatelet agents. ASA Grade Assessment: II - A patient with mild systemic disease. After reviewing the risks and benefits, the patient was deemed in satisfactory condition to undergo the procedure. The anesthesia plan was to use monitored anesthesia care (MAC). Immediately prior to administration of medications, the patient was re-assessed for adequacy to receive sedatives. The heart rate, respiratory rate, oxygen saturations, blood pressure, adequacy of pulmonary ventilation, and response to care were monitored throughout the procedure. The physical status of the patient was re-assessed after the procedure. After obtaining informed consent, the endoscope was passed under direct vision. Throughout the procedure, the patient's blood pressure, pulse, and oxygen saturations were monitored continuously. The Endoscope was introduced through the mouth, and advanced to the second part of duodenum. The upper GI endoscopy was accomplished without difficulty. The patient tolerated the procedure well. Scope In: 8:11:30 AM Scope Out: 8:14:48 AM Total Procedure Duration Time 0 hours 3 minutes 18 seconds Findings: LA Grade B (one or more mucosal breaks greater than 5 mm, not extending between the tops of two mucosal folds) esophagitis with no bleeding was found 36 to 40 cm from the incisors. Biopsies were taken with a cold forceps for histology. Verification of patient identification for the specimen was done. Estimated blood loss was minimal. A small hiatal hernia was present. No other significant abnormalities were identified in a careful examination of the stomach. No gross lesions were noted in the entire examined duodenum. Impression: - LA Grade B reflux esophagitis with no bleeding. Biopsied. - Small hiatal hernia. - No gross lesions in the entire examined duodenum. Recommendation: - Discharge patient to home. - Resume previous diet. - Continue present medications. Procedure Code(s): --- Professional --- 32615, Esophagogastroduodenoscopy, flexible, transoral; with biopsy, single or multiple CPT copyright 2021 [employer]. All rights reserved. The codes documented in this report are preliminary and upon embossing clerk review may be revised to meet current compliance requirements. Marcellus Modi DO 03/16/2025 8:28:09 AM This report has been signed electronically. Number of Addenda: 0 Note Initiated On: 03/16/2025 8:02 AM
--- NOTE | 2025-03-16 08:59 | POSTOPAN2_ITS ---
Anesthesia Postop Eval I Sum Postop Eval Completion status Anesthesia document: Postop Eval 1 completed: Yes Anesthesia Postop Eval I Summary Anesthesia Postop Eval I Summary: Anesthesia Postop Eval I: Assessment Summary Airway patent Yes 03/16/25 08:23 JUMP ROLL [email or web address] Spontaneous unlabored Yes 03/16/25 08:23 JUMP ROLL [email or web address] respirations Mental status Awake,Calm 03/16/25 08:23 JUMP ROLL [email or web address] nausea No 03/16/25 08:23 JUMP ROLL [email or web address].[email or web address] Vomiting No 03/16/25 08:23 JUMP ROLL [email or web address] Anesthesia Postop Eval I: Fluid Summary Crystalloid volume administer 100 03/16/25 08:23 JUMP ROLL [email or web address] (ml) Colloids volume administered ( ml) Blood Product volume administered (ml) Total IV fluid infused 100 03/16/25 08:23 JUMP ROLL [email or web address] Anesthesia Postop Eval I: Summary Notes Anesthesia Complication No 03/16/25 08:23 JUMP ROLL [email or web address] Anesthesia Complication Comment: Post-operative progress note Anesthesia: Postop Eval II Evaluation Mental status: Awake Pain Level: 0 nausea: No Vomiting: No
--- NOTE | 2025-03-16 08:59 | PCM.POSTANE2 ---
Anesthesia Postop Eval I Sum Postop Eval Completion status Anesthesia document: Postop Eval 1 completed: Yes Anesthesia Postop Eval I Summary Anesthesia Postop Eval I Summary: Anesthesia Postop Eval I: Assessment Summary Airway patent Yes 03/16/25 08:23 AIRPORT [email or web address] Spontaneous unlabored Yes 03/16/25 08:23 AIRPORT REPRESENTATIVE.[email or web address] respirations Mental status Awake,Calm 03/16/25 08:23 AIRPORT [email or web address].[email or web address] nausea No 03/16/25 08:23 AIRPORT REPRESENTATIVE.[email or web address] Vomiting No 03/16/25 08:23 AIRPORT REPRESENTATIVE.[email or web address] Anesthesia Postop Eval I: Fluid Summary Crystalloid volume administer 100 03/16/25 08:23 AIRPORT [email or web address] (ml) Colloids volume administered ( ml) Blood Product volume administered (ml) Total IV fluid infused 100 03/16/25 08:23 AIRPORT REPRESENTATIVE.[email or web address] Anesthesia Postop Eval I: Summary Notes Anesthesia Complication No 03/16/25 08:23 AIRPORT REPRESENTATIVE.[email or web address] Anesthesia Complication Comment: Post-operative progress note Anesthesia: Postop Eval II Evaluation Mental status: Awake Pain Level: 0 nausea: No Vomiting: No
== END 2025-03-16 09:08 | disposition home or self-care (01) ==
LOC: EN 06:39 → AC 06:41
PROVIDERS: PCP Family Medicine; Referring Provider Family Medicine; Visit Provider Internal Medicine Gastroenterology
PROC: 0DJ08ZZ Inspection of Upper Intestinal Tract, Via Natural or Artificial Opening Endoscopic (ICD-10-PCS; CPT 43235; principal; 2025-03-16 07:40)
DX: K21.00 Gastro-esophageal reflux disease with esophagitis, without bleeding (principal); K44.9 Diaphragmatic hernia without obstruction or gangrene; R09.A2 Foreign body sensation, throat; Z79.899 Other long term (current) drug therapy
CPT/HCPCS: 43239; 88305